=== PATIENT | male | born 1940 | race Caucasian/White ===

== ENCOUNTER 2024-01-09 13:57 | Emergency (ER) | payer MEDICARE, SELFPAY ==
[2024-01-09] VITALS (7 sets, daily range): BP systolic 165–211; BP diastolic 70–87; PULSE 60–74; BMI 22.0
[2024-01-09 14:37] LABS: % Basophils 0.5 % (0-2); % Eosinophils 4.1 % (0-6); % Immature Granulocytes 0.6 % (0-0.5); % Lymphocytes 9.7 % (20.5-51.1); % Monocytes 6.7 % (1.7-9.3); % Neutrophils 78.4 % (42.2-75.2); Absolute Eosinophils 0.3 10^3/uL (0-0.7); Absolute Immature Granulocytes 0.1 10^3/uL (0-0.05); Absolute Lymphocytes 0.8 10^3/uL (1.2-3.4); Absolute Monocytes 0.6 10^3/uL (0.1-0.6); Absolute Neutrophils 6.6 10^3/uL (1.4-6.5); Hematocrit 37.3 % (39.0-52.0); Hemoglobin 12.5 g/dL (13.0-18.0); Mean Corp Hgb Conc. 33.5 g/dL (33.0-37.0); Mean Corpuscular Hgb 28.8 pg (27.0-31.0); Mean Corpuscular Volume 85.9 fL (80.0-94.0); Mean Platelet Volume 11.4 fL (7.4-10.4); Nucleated Red Blood Cells % 0 % (-); Platelet Count 168 10^3/uL (130-400); Red Blood Cell Count 4.34 10^6/uL (4.70-6.10); Red Cell Dist. Width 17.2 % (11.5-14.5); White Blood Cell Count 8.4 10^3/uL (4.8-10.8)
[2024-01-09 14:58] LABS: ALT (SGPT) 36 U/L (0-50); AST (SGOT) 39 U/L (17-59); Albumin 4.2 g/dl (3.5-5.0); Alkaline Phosphatase 135 U/L (38-126); Blood Urea Nitrogen 19 mg/dl (9-20); Calcium 8.9 mg/dl (8.4-10.2); Carbon Dioxide 25 mmol/L (22-30); Chloride 104 mmol/L (98-107); Glucose 146 mg/dl (70-99); Potassium 4.1 mmol/L (3.5-5.1); Sodium 136 mmol/L (135-145); Total Bilirubin 1.9 mg/dl (0.2-1.3); Total Protein 6.9 g/dl (6.3-8.2); eGFR > 60.00
[2024-01-09 17:06] LABS: Urine Albumin 1+ (Neg - Trace); Urine Bilirubin 1+ (Negative); Urine Character Clear (Clear); Urine Color Yellow; Urine Glucose Trace (Negative); Urine Ketone Negative (Negative); Urine Leukocyte Trace (Negative); Urine Nitrite Negative (Negative); Urine Occult Blood 4+ (Negative); Urine Specific Gravity 1.025 (<1.030); Urine Urobilinogen 3+ (Neg - 1+)
[2024-01-09 17:18] LABS: Urine Calcium Oxalate Crystals Present; Urine Red Blood Cell 90-100 /HPF (0-2); Urine White Cell 0-2 /HPF (0-5)
--- NOTE | 2024-01-09 17:18 | ED.GENMED ---
History of Present Illness
<Chikis Gould, MOLDING MANAGER - Last Filed: 01/10/24 08:04>
General
Chief Complaint: Urinary Symptoms
Source: patient
Exam Limitations: none
Time Seen by Provider: 01/09/24 16:35
Nursing documentation reviewed up to this point in time: agreed with
Travel History
Have you had any contact with someone who has COVID-19?: No
Do you have any symptoms of coronavirus? Fever > 100 degrees, chills, cough, shortness of breath, sore throat, loss of taste or smell, muscle aches, or headache?: No
History of Present Illness
History of Present Illness:
83-year-old male present with at 11 a.m. after his dermatology appointment where he had his 4th 'light treatment' to left arm, felt lightheaded, faint, mild headache noted BP to be high and had one episode of hematuria. Had hematuria 10 yrs ago,
cystoscopy by Dr. Burk neg.
PMHX of history of A-fib, HTN, pacemaker, NIDDM, psoriasis, admitted 12/13 to 12/15 for TAVR, was started on Farxiga and Entresco. Started developing rash during that admission, worsened after discharge and admitted again 12/18-12/22 for significant
left arm swelling and generalized rash: DC dx: Drug reaction rash vs. rash due to Farxiga vs Psoriatic Flare. also Hypertension.
He stopped the Farxiga and Entresco. Placed on steroids with significant improvement.
Followed up with dermatology Had skin biopsy, told him it was a severe reaction to Farxiga and Entresco.
Followed up with [facility] [facility] today and is getting 'light therapy' to left arm.
For HTN: Cardiology Caro Arias stopped Metoprolol and started Coreg for better control, Lasix increased from prn to daily. He reported consistently high BP 5 days ago and started back on Metoprolol 12.5 mg daily, BP still high and Metoprolol was
increased to 25 mg daily
Past History
<Chikis Gould, MOLDING MANAGER - Last Filed: 01/10/24 08:04>
Past History
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
eye glaucoma)
ED Past Surgical History: Appendectomy, Cardiac (Pacemaker implantation August 2022) and Other (Nasal surgery, cataract surgery)
Patient has exhibited threatening behavior?: No
PSI?: No
Social History
Tobacco: Non-smoker
Alcohol: Daily (Beer 2 )
Drug: None
Personal:
Living: with family
Employment: Retired
Family History
Family History: CAD
Review of Systems
<Chikis Gould, MOLDING MANAGER - Last Filed: 01/10/24 08:04>
Review of Systems
Allergies reviewed?: Yes
All Other Systems: ROS reviewed and negative except as documented in HPI and ROS
Constitutional: Denies fever or chills
Respiratory: Denies trouble breathing
Cardiac: Denies chest pain
ABD/GI: Denies abdominal pain, nausea, vomiting or diarrhea
: Reports dark urine; Denies dysuria, frequency, flank pain, difficulty voiding or urgency
Musculoskeletal: Reports no symptoms
Skin: Reports other (generalized skin rash)
Neurological: Reports other (Lightheadedness); Denies dizzy, headache, weakness or numbness
Phy Exam
<Chikis Gould MOLDING MANAGER - Last Filed: 01/10/24 08:04>
Physical Exam
Physical Exam:
GENERAL: No acute distress. A&Ox3.
CONSTITUTIONAL: Afebrile.
EYES: PERRL, conjunctivae normal
Neck: Supple
ENMT: moist mucus membranes, Pharynx nl
RESPIRATORY: Regular respirations, nonlabored, lungs clear.
CARDIOVASCULAR: Regular rate and rhythm, no murmurs, no rubs.
GI: Soft, nontender, normal BS
MUSCULOSKELETAL: Moves with ease. Well perfused.
SKIN: Warm, dry, generalized red and scaly rash, mild swelling left arm(patient states much improved).
PSYCH: Normal mood and affect. Well kept, interactive and appropriate
NEUROLOGIC: Awake, alert and oriented. No focal neurological deficits
Course
<Chikis Gould, MOLDING MANAGER - Last Filed: 01/10/24 08:04>
Orders/Labs/Results
Orders:
Orders
01/09/24 14:09
Electrocardiogram (*1) Urgent
Reason for Study: Fatigue / Weakness
01/09/24 14:10
EKG- Treatment ONCE
01/09/24 14:24
Complete Blood Count/With Diff Urgent
Comprehensive Metabolic Panel Urgent
01/09/24 16:54
Urinalysis Reflex To Culture Urgent
Date Specimen was Collected: 01/09/24
Time Specimen was Collected: 14:10
Urine Microscopic Reflex Cult Urgent
Urine Culture Urgent
JORGE Source: U
Specimen Description:
Date Specimen was Collected: 01/09/24
Time Specimen was Collected: 14:10
01/09/24 17:18
INR [Prothrombin Time] Urgent
Abnormal Lab Results
01/09/24 01/09/24 01/09/24
14:24 16:54 17:18
RBC 4.34 L 10^6/uL
(4.70-6.10)
Hgb 12.5 L g/dL
(13.0-18.0)
Hct 37.3 L %
(39.0-52.0)
RDW 17.2 H %
(11.5-14.5)
MPV 11.4 H fL
(7.4-10.4)
Abs Immat Gran (auto) 0.1 H 10^3/uL
(0-0.05)
Absolute Neuts (auto) 6.6 H 10^3/uL
(1.4-6.5)
Absolute Lymphs (auto) 0.8 L 10^3/uL
(1.2-3.4)
Immature Gran % 0.6 H %
(0-0.5)
Neutrophils % 78.4 H %
(42.2-75.2)
Lymphocytes % 9.7 L %
(20.5-51.1)
PT 30.7 H Sec
(11.4-14.6)
Creatinine 0.6 L mg/dL
(0.7-1.3)
Glucose 146 H mg/dl
(70-99)
Total Bilirubin 1.9 H mg/dl
(0.2-1.3)
Alkaline Phosphatase 135 H U/L
(38-126)
Ur Occult Blood Reflex 4+ A
(Negative)
Urine Bilirubin 1+ A
(Negative)
Urine Urobilinogen 3+ A
(Neg - 1+)
Leukocyte Esterase Rfl Trace A
(Negative)
Urine RBC 90-100 A /HPF
(0-2)
Urine Bacteria (Reflex) Moderate A
(Negative)
Urine Glucose Trace A
(Negative)
Urine Albumin (Reflex) 1+ A
(Neg - Trace)
01/09/24 14:24
01/09/24 14:24
Vital Signs
Initial and Last Documented VS:
Initial Vital Signs
Temp Pulse Resp BP Pulse Ox
97.7 F 65 17 165/76 99
01/09/24 14:07 01/09/24 14:07 01/09/24 14:07 01/09/24 14:07 01/09/24 14:07
Last Documented Vital Signs
Temp Pulse Resp BP Pulse Ox
97.7 F 71 19 177/87 96
01/09/24 14:07 01/09/24 18:14 01/09/24 18:11 01/09/24 19:52 01/09/24 19:53
<Kristen Gray MD - Last Filed: 01/09/24 19:35>
Orders/Labs/Results
Orders:
Orders
01/09/24 14:09
Electrocardiogram (*1) Urgent
Reason for Study: Fatigue / Weakness
01/09/24 14:10
EKG- Treatment ONCE
01/09/24 14:24
Complete Blood Count/With Diff Urgent
Comprehensive Metabolic Panel Urgent
01/09/24 16:54
Urinalysis Reflex To Culture Urgent
Date Specimen was Collected: 01/09/24
Time Specimen was Collected: 14:10
Urine Microscopic Reflex Cult Urgent
Urine Culture Urgent
JORGE Source: U
Specimen Description:
Date Specimen was Collected: 01/09/24
Time Specimen was Collected: 14:10
01/09/24 17:18
INR [Prothrombin Time] Urgent
Abnormal Lab Results
01/09/24 01/09/24 01/09/24
14: 16:54 17:18
RBC 4.34 L 10^6/uL
(4.70-6.10)
Hgb 12.5 L g/dL
(13.0-18.0)
Hct 37.3 L %
(39.0-52.0)
RDW 17.2 H %
(11.5-14.5)
MPV 11.4 H fL
(7.4-10.4)
Abs Immat Gran (auto) 0.1 H 10^3/uL
(0-0.05)
Absolute Neuts (auto) 6.6 H 10^3/uL
(1.4-6.5)
Absolute Lymphs (auto) 0.8 L 10^3/uL
(1.2-3.4)
Immature Gran % 0.6 H %
(0-0.5)
Neutrophils % 78.4 H %
(42.2-75.2)
Lymphocytes % 9.7 L %
(20.5-51.1)
PT 30.7 H Sec
(11.4-14.6)
Creatinine 0.6 L mg/dL
(0.7-1.3)
Glucose 146 H mg/dl
(70-99)
Total Bilirubin 1.9 H mg/dl
(0.2-1.3)
Alkaline Phosphatase 135 H U/L
(38-126)
Ur Occult Blood Reflex 4+ A
(Negative)
Urine Bilirubin 1+ A
(Negative)
Urine Urobilinogen 3+ A
(Neg - 1+)
Leukocyte Esterase Rfl Trace A
(Negative)
Urine RBC 90-100 A /HPF
(0-2)
Urine Bacteria (Reflex) Moderate A
(Negative)
Urine Glucose Trace A
(Negative)
Urine Albumin (Reflex) 1+ A
(Neg - Trace)
01/09/24 14:24
01/09/24 14:24
Vital Signs
Initial and Last Documented VS:
Initial Vital Signs
Temp Pulse Resp BP Pulse Ox
97.7 F 65 17 165/76 99
01/09/24 14:07 01/09/24 14:07 01/09/24 14:07 01/09/24 14:07 01/09/24 14:07
Last Documented Vital Signs
Temp Pulse Resp BP Pulse Ox
97.7 F 71 19 177/87 96
01/09/24 14:07 01/09/24 18:14 01/09/24 18:11 01/09/24 19:52 01/09/24 19:53
<Chikis Gould NP - Last Filed: 01/10/24 08:04>
MDM/Problems Addressed
Differential Diagnosis Includes:
cellulitis
Hypertensive urgency
ICH
MDM/Problems Addressed:
83-year-old male present with at 11 a.m. after his dermatology appointment felt lightheaded, faint, mild headache noted BP to be high and had one episode of hematuria. Had hematuria 10 yrs ago, cystoscopy by Dr. Burk neg.
PMHX of history of A-fib, HTN, pacemaker, NIDDM, psoriasis, admitted 12/13 to 12/15 for TAVR, was started on Farxiga and Entresco. Started developing rash during that admission, worsened after discharge and admitted again 12/18-12/22 for significant
left arm swelling and generalized rash: DC dx: Drug reaction rash vs. rash due to Farxiga vs Psoriatic Flare. also Hypertension.
He stopped the Farxiga and Entresco. Placed on steroids with significant improvement.
Followed up with dermatology who told him it was a severe reaction to Farxiga and Entresco. Took biopsy and told
Followed up with [facility] today and is getting 'light therapy' to left arm.
For HTN: Cardiology Caro GalvanHugo stopped Metoprolol and started Coreg for better control, Lasix increased from prn to daily. He reported consistently high BP 5 days ago and started back on Metoprolol 12.5 mg daily, BP still high and Metoprolol was
increased to 25 mg daily. Pt states his Coreg was DC'd.
01/09/2024 1841 PM
CBC: No clinically significant abnormality
INR 2.95
CMP with no clinically significant abnormality. Chronic mildly elevated total bilirubin
UA: 4+ occult blood, 90-100 RBCs per hpf, no WBCs
When I started to go over his unremarkable laboratory work and his improving blood pressure, no sign of infection in the urine, he started explaining that his left arm is more red than it has been and wondering why we cannot do anything about that
He saw his wire twister today and I informed him he should call his wire twister tomorrow and inform of his concerns for his arm, after 4 light therapy sessions, the last 1 being today it may be difficult that the arm looks a little more reddened.
Orthostatics negative
Abdomen benign
Urine appears clear rowena
INR therapeutic, no focal neuro deficits, no suspicion of ICH
Patient has an echo scheduled for Sunday 5 days, and has an appointment Sunday with cardiology MOLDING MANAGER
Recommended f/u with his urologist
Recommended call [facility] tomorrow about the increased redness, of left upper arm.
Upon discharge patient is disappointed that we can 'do nothing, I thought the hospital was supposed to fix things.'
Case discussed with Dr. Gray who evaluated patient.
Dr. Gray agrees, pt frustrated with multiple issues, none acute needing immediate intervention.
<Chikis Gould NP - Last Filed: 01/10/24 08:04>
*Critical Care Note
Total Time (30-74mins, 75-104mins- exclusive of procedures): Not Applicable
ED Attending Note
<Chikis Gould NP - Last Filed: 01/10/24 08:04>
-
Portions of this chart may have been created with voice recognition software.� Occasional wrong word or��sound alike� substitutions may have occurred due to the inherent limitations of voice recognition software.
<Kristen Gray MD - Last Filed: 01/09/24 19:35>
ED Attending Note
Patient seen and examined by attending physician: Yes
I performed the substantive portion of visit, reviewed & personally made and approve the management plan that is documented in note by myself or JIM.: Yes
ED Attending Note:
Patient is hemodynamically stable and there is no sign of significant bleeding. Patient has no sign of endorgan damage. Patient will be encouraged to follow-up with urology as well as dermatology for his ongoing itchy skin rash. I looked at
patient's rash and there is no petechiae and no sign of cellulitis.
Discharge Plan
Departure
Patient Disposition: Home (Routine Discharge)
Date of Disposition: 01/09/24
Time of Disposition: 18:55
Patient with high blood pressure during this ER visit?: Yes
Condition: Fair
Discharge Problem:
psoriatic skin rash, Hypertension, Lightheadedness, Hematuria
Instructions: Blood in the Urine (Hematuria), Adult (DC), BLOOD PRESSURE
Prescriptions:
No Action
finasteride 5 MG tablet
5 mg PO DAILY@2099
loratadine [Claritin RediTabs] 10 mg Tablet,Disintegrating
10 mg PO DAILY PRN (Reason: ALLERGIES)
paroxetine HCl 10 mg Tablet
10 mg PO DAILY
melatonin 10 mg Tablet
10 mg PO HS PRN (Reason: SLEEP)
metformin 500 mg tablet
500 mg PO DAILY@2099
polyethylene glycol 3350 17 gram powder in packet
17 g PO DAILY PRN (Reason: constipation)
acetaminophen 500 mg Tablet
500 mg PO Q6H PRN (Reason: discomfort)
warfarin 2.5 mg Tablet
2.5 mg PO SUMOTUWETHFR@2099
diphenhydramine HCl [Benadryl] 25 mg Capsule
25 mg PO DAILYPRN PRN (Reason: allergies)
cholecalciferol (vitamin D3) 50 mcg (2,000 unit) Capsule
150 mcg PO DAILY
furosemide 20 mg Tablet
20 mg PO DAILY Qty: 0 0RF
warfarin 2.5 mg Tablet
5 mg PO SA@2099
furosemide 20 mg Tablet
40 mg PO DAILY PRN (Reason: weight gain of 3lbs overnight)
metoprolol succinate 25 mg Tablet Extended Release 24 Hr
25 mg PO DAILY@2099
atorvastatin 20 mg tablet
20 mg PO DAILY@2099
triamcinolone acetonide 0.1 % cream
1 applic TOPICAL BID
Referrals:
Phill Selby MD [Family Provider] -
Activity Restrictions/Additional Instructions:
As we discussed, your last blood pressure was 167/70. Continue your current meds and keep your appointment on Sunday for your echocardiogram and on Sunday for your visit with the cardiac nurse practitioner.
Call your wire twister tomorrow and ask if it is unusual that your arm seems more reddened and irritated today after your light therapy
Call your urologist to make an appointment for the hematuria. Your urine shows no sign of infection.
Interventions
Interventions:
*Risk Screen - Suicide Last Done: 01/09/24 17:15
*General Assessment Last Done: 01/09/24 17:15
*Neglect/Abuse Screening Last Done: 01/09/24 17:16
ED- Fall Risk Assessment Last Done: 01/09/24 19:55
*ED COVID-19 Vaccine History Last Done: 01/09/24 14:08
*Nursing Disposition Last Done: 01/09/24 19:55
ED-Male Genitourinary Assessment Last Done: 01/09/24 17:00
Discharge Date and Time
Discharge Date/Time: 01/09/24 20:03
[2024-01-09 17:20] LABS: Urine Bacteria Moderate (Negative)
[2024-01-09 17:46] LABS: INR 2.95; PT 30.7 Sec (11.4-14.6)
== END 2024-01-09 20:03 | disposition home or self-care (01) ==
LOC: EMR 13:57
PROVIDERS: Registered Nurse; EMERGENCY PHYSICIAN Emergency Medicine; FAMILY PHYSICIAN Family Medicine
DX: L40.9 Psoriasis, unspecified (principal); R42 Dizziness and giddiness; R31.9 Hematuria, unspecified; R51.9 Headache, unspecified; R22.32 Localized swelling, mass and lump, left upper limb; I10 Essential (primary) hypertension; I48.91 Unspecified atrial fibrillation; E11.9 Type 2 diabetes mellitus without complications; E78.00 Pure hypercholesterolemia, unspecified; G93.32 Myalgic encephalomyelitis/chronic fatigue syndrome; K57.92 Diverticulitis of intestine, part unspecified, without perforation or abscess without bleeding; N40.0 Benign prostatic hyperplasia without lower urinary tract symptoms; H40.9 Unspecified glaucoma; Z95.0 Presence of cardiac pacemaker; Z88.0 Allergy status to penicillin; Z88.2 Allergy status to sulfonamides; Z88.8 Allergy status to other drugs, medicaments and biological substances; Z79.01 Long term (current) use of anticoagulants
CPT/HCPCS: 99283; 80053; 81003; 81015; 85025; 85610; 87086; 93005

== ENCOUNTER → 2024-01-14 10:03 | Outpatient (REF) | payer MEDICARE, SELFPAY | LOC: DHCBC MAIN 10:03 | PROVIDERS: ATTENDING PHYSICIAN Internal Medicine Cardiovascular Disease; FAMILY PHYSICIAN Family Medicine | DX: I35.0 Nonrheumatic aortic (valve) stenosis (principal) | CPT/HCPCS: 93306 ==

== ENCOUNTER → 2024-01-25 11:22 | Outpatient (REF) | payer MEDICARE, SELFPAY ==
[2024-01-25 12:50] LABS: ALT (SGPT) 40 U/L (0-50); AST (SGOT) 43 U/L (17-59); Albumin 4.1 g/dl (3.5-5.0); Alkaline Phosphatase 111 U/L (38-126); Blood Urea Nitrogen 16 mg/dl (9-20); Calcium 9.3 mg/dl (8.4-10.2); Carbon Dioxide 29 mmol/L (22-30); Chloride 100 mmol/L (98-107); Glucose 197 mg/dl (70-99); Potassium 4.4 mmol/L (3.5-5.1); Sodium 135 mmol/L (135-145); Total Bilirubin 2.4 mg/dl (0.2-1.3); Total Protein 6.7 g/dl (6.3-8.2); eGFR > 60.00
[2024-01-25 13:03] LABS: INR 4.77
[2024-01-25 13:58] LABS: Glycohemoglobin (HgbA1c) 6.8 % (4.0-5.6)
== END ==
LOC: REG 11:22
PROVIDERS: ATTENDING PHYSICIAN Nurse Practitioner; FAMILY PHYSICIAN Family Medicine
DX: I10 Essential (primary) hypertension (principal); D68.318 Other hemorrhagic disorder due to intrinsic circulating anticoagulants, antibodies, or inhibitors; I48.21 Permanent atrial fibrillation; E11.9 Type 2 diabetes mellitus without complications
CPT/HCPCS: 36415; 80053; 83036; 85610

== ENCOUNTER → 2024-01-31 10:09 | Outpatient (REF) | payer MEDICARE, SELFPAY ==
[2024-01-31 18:43] LABS: Urine Albumin Negative (Neg - Trace); Urine Bilirubin Negative (Negative); Urine Character Clear (Clear); Urine Color Yellow; Urine Glucose 1+ (Negative); Urine Ketone Negative (Negative); Urine Leukocyte Negative (Negative); Urine Nitrite Negative (Negative); Urine Occult Blood Negative (Negative); Urine Urobilinogen Negative (Neg - 1+)
== END ==
LOC: CLAB 10:09
PROVIDERS: ATTENDING PHYSICIAN Specialist
DX: R31.0 Gross hematuria (principal)
CPT/HCPCS: 81003

== ENCOUNTER → 2024-02-01 10:46 | Outpatient (REF) | payer MEDICARE, SELFPAY ==
[2024-02-01 11:56] LABS: Urine Albumin Negative (Neg - Trace); Urine Bilirubin Negative (Negative); Urine Character Clear (Clear); Urine Color Yellow; Urine Glucose Trace (Negative); Urine Ketone Negative (Negative); Urine Leukocyte Negative (Negative); Urine Nitrite Negative (Negative); Urine Occult Blood Negative (Negative); Urine Specific Gravity 1.015 (<1.030); Urine Urobilinogen Negative (Neg - 1+)
[2024-02-01 12:06] LABS: INR 2.97; PT 30.8 Sec (11.4-14.6)
[2024-02-01 12:31] LABS: Blood Urea Nitrogen 18 mg/dl (9-20); Carbon Dioxide 28 mmol/L (22-30); Chloride 101 mmol/L (98-107); Glucose 166 mg/dl (70-99); Sodium 136 mmol/L (135-145); eGFR > 60.00
== END ==
LOC: REG 10:46
PROVIDERS: ATTENDING PHYSICIAN Family Medicine
DX: D68.318 Other hemorrhagic disorder due to intrinsic circulating anticoagulants, antibodies, or inhibitors (principal); I10 Essential (primary) hypertension; R31.0 Gross hematuria
CPT/HCPCS: 36415; 80048; 81003; 85610

== ENCOUNTER → 2024-02-08 09:27 | Outpatient (REF) | payer MEDICARE, SELFPAY ==
[2024-02-08 10:58] LABS: INR 2.66; PT 28.2 Sec (11.4-14.6)
== END ==
LOC: REG 09:27
PROVIDERS: ATTENDING PHYSICIAN Physician Assistant
DX: D68.318 Other hemorrhagic disorder due to intrinsic circulating anticoagulants, antibodies, or inhibitors (principal)
CPT/HCPCS: 36415; 85610

== ENCOUNTER → 2024-02-12 11:29 | Outpatient (REF) | payer MEDICARE, SELFPAY ==
[2024-02-12 12:48] LABS: INR 2.35; PT 25.6 Sec (11.4-14.6)
== END ==
LOC: REG 11:29
PROVIDERS: ATTENDING PHYSICIAN Physician Assistant
DX: D68.318 Other hemorrhagic disorder due to intrinsic circulating anticoagulants, antibodies, or inhibitors (principal)
CPT/HCPCS: 36415; 85610

== ENCOUNTER → 2024-02-14 13:14 | Outpatient (REF) | payer MEDICARE, SELFPAY ==
[2024-02-14 14:53] LABS: Blood Urea Nitrogen 23 mg/dl (9-20); Calcium 9.5 mg/dl (8.4-10.2); Carbon Dioxide 29 mmol/L (22-30); Chloride 99 mmol/L (98-107); Glucose 86 mg/dl (70-99); Potassium 4.3 mmol/L (3.5-5.1); Sodium 138 mmol/L (135-145); eGFR > 60.00
== END ==
LOC: REG 13:14
PROVIDERS: ATTENDING PHYSICIAN Nurse Practitioner; FAMILY PHYSICIAN Family Medicine
DX: I10 Essential (primary) hypertension (principal)
CPT/HCPCS: 36415; 80048

== ENCOUNTER → 2024-02-21 11:09 | Outpatient (REF) | payer MEDICARE, SELFPAY | LOC: RAD 11:09 | PROVIDERS: ATTENDING PHYSICIAN Specialist; FAMILY PHYSICIAN Family Medicine | DX: R31.0 Gross hematuria (principal) | CPT/HCPCS: 76770 ==

== ENCOUNTER 2024-02-22 16:09 | Outpatient (RCR) | payer MEDICARE, SELFPAY ==
[2024-02-15 14:26] LABS: Glucose - Point of Care 114 mg/dl (70-99)
[2024-02-15 15:18] LABS: Glucose - Point of Care 92 mg/dl (70-99)
[2024-02-18 16:01] LABS: Glucose - Point of Care 120 mg/dl (70-99)
[2024-02-18 16:27] LABS: Glucose - Point of Care 112 mg/dl (70-99)
[2024-02-20 16:34] LABS: Glucose - Point of Care 134 mg/dl (70-99)
[2024-02-20 16:51] LABS: Glucose - Point of Care 119 mg/dl (70-99)
[2024-02-22 15:35] LABS: Glucose - Point of Care 122 mg/dl (70-99)
[2024-02-22 16:17] LABS: Glucose - Point of Care 135 mg/dl (70-99)
[2024-02-26 09:49] LABS: HDL Cholesterol 53 mg/dl; LDL Cholesterol, Calculated 53 mg/dl; Total Cholesterol 119 mg/dl (50-199); Triglyceride 67 mg/dl (10-149); Very Low Density Lipoprotein 13 mg/dl (0-30)
== END 2024-02-22 23:59 | disposition home or self-care (01) ==
LOC: CRHB 16:09
PROVIDERS: ATTENDING PHYSICIAN Internal Medicine Cardiovascular Disease; FAMILY PHYSICIAN Family Medicine
DX: Z95.4 Presence of other heart-valve replacement (principal)
CPT/HCPCS: 36415; 80061; 82962; G0422; G0423

== ENCOUNTER → 2024-02-26 07:25 | Outpatient (REF) | payer MEDICARE, SELFPAY ==
[2024-02-26 09:02] LABS: INR 2.99
== END ==
LOC: REG 07:25
PROVIDERS: ATTENDING PHYSICIAN Family Medicine
DX: D68.318 Other hemorrhagic disorder due to intrinsic circulating anticoagulants, antibodies, or inhibitors (principal); I48.21 Permanent atrial fibrillation
CPT/HCPCS: 36415; 85610

== ENCOUNTER 2024-03-10 15:06 | Outpatient (RCR) | payer MEDICARE, SELFPAY ==
[2024-02-25 15:46] LABS: Glucose - Point of Care 128 mg/dl (70-99)
[2024-02-25 16:16] LABS: Glucose - Point of Care 123 mg/dl (70-99)
[2024-02-27 15:27] LABS: Glucose - Point of Care 117 mg/dl (70-99)
[2024-02-27 16:10] LABS: Glucose - Point of Care 108 mg/dl (70-99)
[2024-02-29 15:31] LABS: Glucose - Point of Care 107 mg/dl (70-99)
== END 2024-03-10 23:59 | disposition home or self-care (01) ==
LOC: CRHB 15:06
PROVIDERS: ATTENDING PHYSICIAN Internal Medicine Cardiovascular Disease; FAMILY PHYSICIAN Family Medicine
DX: I35.0 Nonrheumatic aortic (valve) stenosis (principal); Z95.4 Presence of other heart-valve replacement
CPT/HCPCS: 82962; G0422; G0423

== ENCOUNTER → 2024-03-14 13:00 | Outpatient (REF) | payer MEDICARE, SELFPAY ==
[2024-03-14 13:49] LABS: INR 3.24
== END ==
LOC: REG 13:00
PROVIDERS: ATTENDING PHYSICIAN Family Medicine
DX: I48.21 Permanent atrial fibrillation (principal)
CPT/HCPCS: 36415; 85610

== ENCOUNTER 2024-03-18 03:27 | Inpatient (IN) | payer MEDICARE, SELFPAY ==
[2024-03-17 19:23] VITALS: BP 122/50
[2024-03-17 19:50] LABS: % Basophils 0.4 % (0-2); % Eosinophils 1.1 % (0-6); % Immature Granulocytes 0.3 % (0-0.5); % Lymphocytes 3.8 % (20.5-51.1); % Neutrophils 86.4 % (42.2-75.2); Absolute Basophils 0.1 10^3/uL (0-0.2); Absolute Eosinophils 0.1 10^3/uL (0-0.7); Absolute Lymphocytes 0.5 10^3/uL (1.2-3.4); Absolute Neutrophils 10.4 10^3/uL (1.4-6.5); Hematocrit 35.3 % (39.0-52.0); Hemoglobin 11.8 g/dL (13.0-18.0); Mean Corp Hgb Conc. 33.4 g/dL (33.0-37.0); Mean Corpuscular Hgb 28.6 pg (27.0-31.0); Mean Corpuscular Volume 85.5 fL (80.0-94.0); Mean Platelet Volume 10.9 fL (7.4-10.4); Nucleated Red Blood Cells % 0 % (-); Platelet Count 163 10^3/uL (130-400); Red Blood Cell Count 4.13 10^6/uL (4.70-6.10); Red Cell Dist. Width 15.7 % (11.5-14.5); White Blood Cell Count 12.1 10^3/uL (4.8-10.8)
[2024-03-17 20:02] LABS: Lactic Acid 1.7 mmol/L (0.7-2.0)
[2024-03-17 20:05] LABS: ALT (SGPT) 36 U/L (0-50); AST (SGOT) 36 U/L (17-59); Alkaline Phosphatase 140 U/L (38-126); Blood Urea Nitrogen 38 mg/dl (9-20); Calcium 9.3 mg/dl (8.4-10.2); Carbon Dioxide 24 mmol/L (22-30); Chloride 98 mmol/L (98-107); Glucose 196 mg/dl (70-99); Potassium 4.8 mmol/L (3.5-5.1); Sodium 132 mmol/L (135-145); Total Bilirubin 1.2 mg/dl (0.2-1.3); Total Protein 6.7 g/dl (6.3-8.2); eGFR > 60.00
[2024-03-17 20:08] LABS: COVID-19 Antigen Negative (Negative)
[2024-03-17 22:35] VITALS: BP 126/49
[2024-03-17 23:00] VITALS: BP 129/45
[2024-03-17 23:14] VITALS: BMI 22.9
[2024-03-18] VITALS (15 sets, daily range): BP systolic 124–162; BP diastolic 29–76; PULSE 64–87; O2SAT 96; BMI 30.2
--- NOTE | 2024-03-18 | EDRN ---
Provided patient with urinal to obtain specimen, patient with no complaints and at bedside
--- NOTE | 2024-03-18 00:12 | ED.GENMED ---
History of Present Illness
General
Chief Complaint: Fever
Source: patient
Exam Limitations: none
Time Seen by Provider: 03/17/24 23:20
Travel History
Have you had any contact with someone who has COVID-19?: No
Do you have any symptoms of coronavirus? Fever > 100 degrees, chills, cough, shortness of breath, sore throat, loss of taste or smell, muscle aches, or headache?: Yes
Symptoms:: fever
History of Present Illness
History of Present Illness:
This is a 83 year old male that comes in with c/o fever. States that he has Psoriasis all over his body for being taken off of steroids to fast. States that he goes to the [facility] and he is getting light and UV treatments. States that he has a
light treatment today. States that night around 7pm he started with a fever of 102 and he was told by the [facility] to come to the ER. States that he had chills, nausea, vomiting, headache, dizziness. Denies any chest pain, SOB, abd pain,
diarrhea, urinary burning.
Past History
Past History
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
syndrome, Diverticulitis, Glaucoma, ) and Other (BPH, deviated septum, left eye glaucoma)
ED Past Surgical History: Appendectomy, Cardiac (Pacemaker implantation August 2022, Valve replacement) and Other (Nasal surgery, cataract surgery)
Patient has exhibited threatening behavior?: No
PSI?: No
Social History
Tobacco: Non-smoker
Alcohol: Occasional (Beer 2 sometimes daily)
Drug: None
Personal:
Living: with family
Employment: Retired
Family History
Family History: CAD
Review of Systems
Review of Systems
All Other Systems: ROS reviewed and negative except as documented in HPI and ROS
Constitutional: Reports fever and chills
EENT: Reports no symptoms
Respiratory: Reports no symptoms; Denies cough or trouble breathing
Cardiac: Reports no symptoms; Denies chest pain
ABD/GI: Reports nausea and vomiting; Denies abdominal pain or diarrhea
: Reports no symptoms; Denies dysuria, frequency or urgency
Musculoskeletal: Reports no symptoms
Skin: Reports no symptoms
Neurological: Reports dizzy and headache
Psychiatric: Reports no symptoms
Phy Exam
General Physical Exam
General Presentation: no apparent distress
General age: appears stated age
General Skin: warm and dry
General Habitus: elderly
General Mental: alert
General Hydration: appears well hydrated
ENT Exam
ENT Exam: TM's normal, pharynx normal and neck supple
Eye Exam
Eye Exam: EOMI
Cardiovascular Exam
Cardiovascular Exam: regular rate/rhythm, no edema and normal peripheral pulses
Pulmonary Exam
Pulmonary Exam: lungs clear, no respiratory distress, no rales, chest non tender, no crackles, no rhonchi, no wheezing and no cough
Gastrointestinal Exam
Gastrointestinal Exam: normal bowel sounds, non tender, soft, no organomegaly, no pulsatile mass and non distended
Musculoskeletal Exam
Musculoskeletal Exam: full ROM and no edema
Skin Exam
Skin Exam: warm/dry, no petechia and other (red like rash noted all over patient body with skin peeling)
Psychiatric Exam
Psychiatric Exam: normal mood/affect
Course
Orders/Labs/Results
Orders:
Orders
03/17/24 19:44
COVID-19 Antigen Urgent
Source: Nasal Swab
Complete Blood Count/With Diff Urgent
Comprehensive Metabolic Panel Urgent
Lactic Acid Urgent
Blood Culture Urgent
JORGE Source: Blood/Venous
Specimen Description:
Influenza A+B Rapid Molecular Urgent
JORGE Source: Nasal Swab
Specimen Description:
03/18/24 00:11
Urinalysis Reflex To Culture Urgent
Date Specimen was Collected: 03/18/24
Time Specimen was Collected: 00:02
Urine Microscopic Reflex Cult Urgent
Urine Culture Urgent
JORGE Source: U
Specimen Description:
Date Specimen was Collected: 03/18/24
Time Specimen was Collected: 00:02
CR Chest - 2 Views Urgent
Comment:
Reason For Exam: fever
03/18/24 01:11
0.9% Sodium Chloride 1000 ml [Nss] 1,000 ml IV BOLUS
03/18/24 01:28
0.9% Sodium Chloride 500 ml [Nss] 500 ml IV BOLUS
Abnormal Lab Results
03/17/24 03/18/24
19:44 00:11
WBC 12.1 H 10^3/uL
(4.8-10.8)
RBC 4.13 L 10^6/uL
(4.70-6.10)
Hgb 11.8 L g/dL
(13.0-18.0)
Hct 35.3 L %
(39.0-52.0)
RDW 15.7 H %
(11.5-14.5)
MPV 10.9 H fL
(7.4-10.4)
Absolute Neuts (auto) 10.4 H 10^3/uL
(1.4-6.5)
Absolute Lymphs (auto) 0.5 L 10^3/uL
(1.2-3.4)
Absolute Monos (auto) 1.0 H 10^3/uL
(0.1-0.6)
Neutrophils % 86.4 H %
(42.2-75.2)
Lymphocytes % 3.8 L %
(20.5-51.1)
Sodium 132 L mmol/L
(135-145)
BUN 38 H mg/dl
(9-20)
Glucose 196 H mg/dl
(70-99)
Alkaline Phosphatase 140 H U/L
(38-126)
Urine Ketones Trace A
(Negative)
Ur Occult Blood Reflex 3+ A
(Negative)
Leukocyte Esterase Rfl 1+ A
(Negative)
Urine RBC 16-20 A /HPF
(0-2)
Urine WBC (Reflex) >100 A /HPF
(0-5)
Urine Bacteria (Reflex) Many A
(Negative)
03/17/24 19:44
03/17/24 19:44
Leukocytosis, H/H slightly low. Sodium slightly low. Dehydration. Glucose nonfasting. Alk phos elevated. Lactic acid normal at 1.7, COVID and Influenza negative. Urine positive for infection.
Vital Signs
Initial and Last Documented VS:
Initial Vital Signs
Temp Pulse Resp BP Pulse Ox
100.3 F 79 18 122/50 96
03/17/24 19:23 03/17/24 19:23 03/17/24 19:23 03/17/24 19:23 03/17/24 19:23
Last Documented Vital Signs
Temp Pulse Resp BP Pulse Ox
99.8 F 60 25 141/51 98
03/18/24 01:40 03/18/24 00:30 03/18/24 00:30 03/18/24 01:00 03/18/24 01:30
MDM/Problems Addressed
Differential Diagnosis Includes:
Viral syndrome. PNA, UTI
MDM/Problems Addressed:
This is a 83 year old male that comes in with c/o fever. States that he had chills tonight, nausea, vomiting, headache and dizziness. States that he is being treated with light and UV therapy by the [facility]. States that he had a light
treatment today and tonight he started with the fever. Patient was told to come to the ER.
Will get lab, COVID, Influenza, Chest x-ray and urine.
Back into see patient. Explained that his Blood works that he has an elevated WBC and he is dehydrated. Patient is negative for COVID and influenza. However, he has a urinary tract infection. Will admit for IV antibiotics. Hospitalist notified.
Chronic conditions affecting care:
NA
Acute Exacerbation and/or Progression of Chronic Illness:
NA
*Radiology
Radiology exam reviewed: preliminary read by ED provider (Chest- Negative for active disease)
*Pulse Oximetry
Patient hypoxic: no
*EKG
Interpreted by ED Provider?: NA
Rate: EKG- N/A
*Rail Setter Interpretation
Rate: normal
Heart Rate: 66
Rhythm: ventricular paced
*Critical Care Note
Total Time (30-74mins, 75-104mins- exclusive of procedures): Not Applicable
ED Attending Note
-
Portions of this chart may have been created with voice recognition software.� Occasional wrong word or��sound alike� substitutions may have occurred due to the inherent limitations of voice recognition software.
Discharge Plan
Departure
Patient Disposition: Admit
Date of Disposition: 03/18/24
Time of Disposition: 02:27
Admit to: Med/Surg
Presentation/result/management discussed w/ accepting MD/DO: Hospitalist
Patient with high blood pressure during this ER visit?: Yes
Condition: Good
Covid-19: Negative COVID-19
Discharge Problem:
Fever and chills, Acute UTI (urinary tract infection)
Prescriptions:
No Action
finasteride 5 MG tablet
5 mg PO DAILY@2099
loratadine [Claritin RediTabs] 10 mg Tablet,Disintegrating
10 mg PO DAILY PRN (Reason: ALLERGIES)
paroxetine HCl 10 mg Tablet
10 mg PO DAILY
melatonin 10 mg Tablet
10 mg PO HS PRN (Reason: SLEEP)
metformin 500 mg tablet
500 mg PO DAILY@2099
polyethylene glycol 3350 17 gram powder in packet
17 g PO DAILY PRN (Reason: constipation)
acetaminophen 500 mg Tablet
500 mg PO Q6H PRN (Reason: discomfort)
warfarin 2.5 mg Tablet
2.5 mg PO SUMOTUWETHFR@2099
diphenhydramine HCl [Benadryl] 25 mg Capsule
25 mg PO DAILYPRN PRN (Reason: allergies)
cholecalciferol (vitamin D3) 50 mcg (2,000 unit) Capsule
150 mcg PO DAILY
furosemide 20 mg Tablet
20 mg PO DAILY Qty: 0 0RF
warfarin 2.5 mg Tablet
5 mg PO SA@2099
furosemide 20 mg Tablet
40 mg PO DAILY PRN (Reason: weight gain of 3lbs overnight)
metoprolol succinate 25 mg Tablet Extended Release 24 Hr
25 mg PO DAILY@2099
atorvastatin 20 mg tablet
20 mg PO DAILY@2099
triamcinolone acetonide 0.1 % cream
1 applic TOPICAL BID
Referrals:
Phill Selby MD [Family Provider] -
Interventions
Interventions:
*Risk Screen - Suicide Last Done: 03/17/24 19:23
*General Assessment Last Done: 03/17/24 19:23
*Neglect/Abuse Screening Last Done: 03/17/24 19:23
ED- Fall Risk Assessment Last Done: 03/17/24 23:14
*ED COVID-19 Vaccine History Last Done: 03/17/24 19:23
ED- Neurological Assessment Last Done: 03/17/24 23:14
ED-Skin Assessment Last Done: 03/17/24 23:14
Discharge Date and Time
Print Language: URDU
[2024-03-18 00:22] LABS: Urine Albumin Trace (Neg - Trace); Urine Bilirubin Negative (Negative); Urine Character Clear (Clear); Urine Color Yellow; Urine Glucose Negative (Negative); Urine Ketone Trace (Negative); Urine Leukocyte 1+ (Negative); Urine Nitrite Negative (Negative); Urine Occult Blood 3+ (Negative); Urine Urobilinogen Negative (Neg - 1+)
[2024-03-18] MEDS: NSS 500 IV (01:29)
[2024-03-18 01:33] LABS: Urine Amorphous Seen; Urine Bacteria Many (Negative); Urine Squamous Cell >30 /LPF (Few); Urine White Cell >100 /HPF (0-5)
[2024-03-18 01:34] LABS: Urine Red Blood Cell 16-20 /HPF (0-2)
--- NOTE | 2024-03-18 01:39 | EDRN ---
Updated patient on labs and plan for hydration and started IV fluids, at bedside and call anderson in reach, no complaints at this time, VSS
--- NOTE | 2024-03-18 03:00 | EDRN ---
Dr. Pack at bedside working on admission orders
[2024-03-18 03:06] LABS: INR 1.78; PT 20.5 Sec (11.4-14.6)
--- NOTE | 2024-03-18 03:13 | HPS.HSE ---
Family Physician
-
Family Physician: Phill Selby
Chief Complaint
-
Fever / Chills
History of Present Illness
Patient is an 83y M with PMH significant for A-Fib, recent TAVR and issues with suspected drug rash / eruption who presents to ED complaining of fevers and chills this evening. Patient was admitted for TAVR in November of this year. He was
started on Farxiga and Entresto at that time and subsequently developed severe, full-body rash. He was readmitted to the hospital, Farxiga and Entresto were discontinued, and he was treated with a short course of prednisone (7 days). Patient
states that his rash returned - much more severe this time - after he completed the prednisone course.
he was evaluated by Dermatology and has since been managed with topical therapies including triamcinolone and UV light therapy.
Patient notes that he woke this AM and had a temp at home of 102. He was seen for a light treatment at his Dermatology office. This evening he developed shaking chills and could not get warm.
He spoke with Derm who recommended he be evaluated in the ED.
Patient denies any cough, chest pain, abdominal pain, diarrhea.
He states that he had nausea and emesis x 1 this afternoon - none since.
He reports difficulty urination and some burning with urination.
No other specific / focal complaints.
He states that his rash is improving - albeit slowly.
Medical History
Past Medical History
Past Medical History: Reports Other
Additional Past Medical History:
Severe Aortic Stenosis
Severe Tricuspid Regurgitation / Pulmonary Hypertension
Permanent Atrial Fibrillation
Hypertension
Diabetes Mellitus, Type II
ASCVD / Carotid Artery Stenosis
BPH
Severe Psoriasis
Past Surgical History: Reports Other
Additional Past Surgical History:
TAVR (11/2023)
PPM Placement
Appendectomy
Nasal Surgery
Social History
Tobacco: Non-smoker
Alcohol: Occasional
Family History
Family History: Not pertinent
Allergies / Home Medications
Allergies reflects when Allergies were last updated in [employer].
Home Medications with original date entered in [employer]
Allergy/Medication List:
Allergies
Allergy/AdvReac Type Severity Reaction Status Date / Time
dapagliflozin [From Farxiga] Allergy Rash Verified 03/17/24 19:26
penicillin G [Penicillin G] Allergy Rash/facial Verified 03/17/24 19:26
burning
progesterone Allergy Swelling Verified 03/17/24 19:26
sacubitril [From Entresto] Allergy itching,desirae Verified 03/17/24 19:26
h
Sulfa (Sulfonamide Allergy Rash Verified 03/17/24 19:26
Antibiotics)
valsartan [From Entresto] Allergy itching,desirae Verified 03/17/24 19:26
h
Home Medications
finasteride 5 mg tablet 5 mg PO DAILY@2099 Urinary issue 06/12/15
paroxetine HCl 10 mg tablet 10 mg PO DAILY Mental Health/Anxiety 10/31/23
metformin 500 mg tablet 500 mg PO DAILY@2099 Diabetes 12/03/23
warfarin 2.5 mg tablet 2.5 mg PO DAILY@2099 Blood Clot Prevention/Tx 12/18/23
furosemide 20 mg tablet 20 mg PO DAILY edema #0 tabs 12/22/23
atorvastatin 20 mg tablet 20 mg PO DAILY@209901/09/24
metoprolol succinate 25 mg tablet,extended release 24 hr 25 mg PO DAILY@209901/09/24
triamcinolone acetonide 0.1 % topical cream 1 applic topical BID apply to B/L arms/chest/back 01/09/24
lisinopril 20 mg tablet 20 mg PO DAILY 03/18/24
spironolactone 25 mg tablet 25 mg PO DAILY 03/18/24
Review of Systems
-
History Source: Patient
A 12 point ROS was completed and negative except as noted: Yes
Constitutional: Reports Fever, Fatigue and Chills
EENT: Denies Sore Throat
Respiratory: Denies Cough or Trouble Breathing
Cardiac: Denies Chest Pain or Palpitations
Abdomen/GI: Reports Nausea and Vomiting; Denies Abdominal Pain, Diarrhea, Constipated, Bloody Stools or Black Stools
: Reports Dysuria and Difficulty Voiding; Denies Frequency, Flank Pain or Incontinence
Musculoskeletal: Denies Joint Pain or Edema
Skin: Reports Itching and Rash
Neurological: Denies Dizzy or Headache
Psych: Reports Depression; Denies Anxiety
Physical Exam
Vital Signs
Vital Signs
Temp Pulse Resp BP Pulse Ox
99.8 F 60 25 146/54 99
03/18/24 01:40 03/18/24 00:30 03/18/24 00:30 03/18/24 02:00 03/18/24 02:30
Physical Exam
General: Other (83y M in no acute distress.)
HEENT: Moist mucous membranes and PERRLA
Respiratory: Clear; No Wheezes, Rales or Rhonchi
Cardiac: S1/S2, Regular Rhythm and Murmur (II/ PERLA)
GI: Soft, Non Tender, Non Distended and Normal Bowel Sounds
Musculoskeletal: No Clubbing, No Cyanosis and No Edema
Skin: Other (Diffuse, exfoliative rash over trunk / extremities. Few scattered ecchymoses. No blisters, bullae, ulcerations, etc.)
Neuro: AO x 3
Laboratory Results
-
03/17/24 19:44
03/17/24 19:44
Laboratory Results
PT 20.5 Sec (11.4-14.6) H 03/18/24 02:52
INR 1.78 03/18/24 02:52
Lactic Acid 1.7 mmol/L (0.7-2.0) 03/17/24 19:44
Total Bilirubin 1.2 mg/dl (0.2-1.3) 03/17/24 19:44
AST 36 U/L (17-59) 03/17/24 19:44
ALT 36 U/L (0-50) 03/17/24 19:44
Alkaline Phosphatase 140 U/L (38-126) H 03/17/24 19:44
Impression/Plan
-
A/P: Patient is an 83y M with PMH significant for severe psoriasis, A-Fib and recent TAVR who presents to ED complaining of fevers / chills.
Fever / Chills
Suspected UTI
- Admit for further evaluation and treatment.
- COVID, influenza, CXR, etc unremarkable.
- UA potentially c/w infection - but also contaminated with > 30 squamous cells.
- Will repeat UA.
- Cover with ceftriaxone fro now pending repeat UA / culture data.
- Follow fever curve.
- Follow for any new / focal symptoms, etc.
Severe Psoriasis
Drug Eruption
- Improving per patient.
- Diffuse exfoliative rash over much of his body.
- Continue topical steroid BID.
- Monitor for any acute changes.
- Follow-up with Dermatology after discharge.
Chronic HFmrEF
Severe Aortic Stenosis s/p TAVR
Moderate - Severe MR
Severe TR / Pulmonary HTN
- Echo done 01/24/24 with EF 40-45% and valvular disease as noted.
- No evidence of volume overload on today's exam.
- Continue current med regimen including current diuretic dosing.
- Follow I/Os, daily weights, etc.
- Patient did not tolerate Farxiga / Entresto as his severe rash developed after these started.
Permanent Atrial Fibrillation
- Stable. Currently in paced rhythm.
- Continue current med regimen including Coumadin for stroke risk reduction.
- Follow daily INR and adjust dosing if needed.
Benign Hypertension
- Stable. Continue outpatient med regimen.
DM-II
- Stable. Hold metformin acutely.
- Follow glucose and cover with SSI as needed.
- Update A1C.
Depression
- Stable. Continue paroxetine.
BPH
- Stable. Continue finasteride.
- Bladder scan protocol.
DVT Prophylaxis: On Coumadin
Code Status: Full
[2024-03-18] MEDS: ROCEPHIN 1000 MG IV (03:19)
[2024-03-18] MEDS: STERILE WATER FOR INJECTION 10 ML IV (03:20)
--- NOTE | 2024-03-18 04:17 | EDRN ---
Lights turned down for comfort, call bel in reach.
[2024-03-18] MEDS: LASIX 20 MG PO (08:51)
[2024-03-18] MEDS: ALDACTONE 25 MG PO (08:51)
[2024-03-18] MEDS: ZESTRIL 20 MG PO (08:52)
[2024-03-18] MEDS: ARISTOCORT/TRIAMCINOLONE 0.1% CREAM 1 APPLIC TOPICAL ×2 (08:53→21:26)
[2024-03-18] MEDS: PAXIL 10 MG PO ×2 (08:53→10:34)
[2024-03-18 09:13] LABS: Glucose - Point of Care 157 mg/dl (70-99)
[2024-03-18] MEDS: NOVOLOG FLEXPEN-LOW RESISTANCE 1 UNITS SC (10:26)
--- NOTE | 2024-03-18 10:32 | W.PN.HOSP.TC ---
Today's Communication/Plan
-
adjust coumadin
await culture data
Assessment / Plan
Assessment / Plan
General: Other (83y M in no acute distress.)
HEENT: Moist mucous membranes and PERRLA
Respiratory: Clear; No Wheezes, Rales or Rhonchi
Cardiac: S1/S2, Regular Rhythm and Murmur (II/ PERLA)
GI: Soft, Non Tender, Non Distended and Normal Bowel Sounds
Musculoskeletal: No Clubbing, No Cyanosis and No Edema
Skin: Other (Diffuse, exfoliative rash over trunk / extremities. Few scattered ecchymoses. No blisters, bullae, ulcerations, etc.)
Neuro: AO x 3
A/P: Patient is an 83y M with PMH significant for severe psoriasis, A-Fib and recent TAVR who presents to ED complaining of fevers / chills.
Fever / Chills unclear source
- COVID, influenza, CXR, etc unremarkable.
- UA potentially c/w infection - but also contaminated with > 30 squamous cells.
- Will repeat UA.
- Cover with ceftriaxone fro now pending repeat UA / culture data.
- Follow fever curve.
- Follow for any new / focal symptoms, etc. If spikes fever, may need ID input.
Severe Psoriasis
Drug Eruption
- Diffuse exfoliative rash over much of his body.
- Continue topical steroid BID.
- Monitor for any acute changes. Monitor rash. Per pt, not much change in regards for erythema post UV treatment.
- Follow-up with Dermatology after discharge.
Chronic HFmrEF
Severe Aortic Stenosis s/p TAVR
Moderate - Severe MR
Severe TR / Pulmonary HTN
- Echo done 01/24/24 with EF 40-45% and valvular disease as noted.
- No evidence of volume overload on today's exam.
- Continue current med regimen including current diuretic dosing.
- Follow I/Os, daily weights, etc.
- Patient did not tolerate Farxiga / Entresto as his severe rash developed after these started.
Permanent Atrial Fibrillation
Sub-therapeutic INR
- Stable. Currently in paced rhythm.
- Continue current med regimen including Coumadin for stroke risk reduction.
- Follow daily INR and adjust dosing if needed. Increase coumadin to 3mg
Benign Hypertension
- Stable. Continue outpatient med regimen.
DM-II
- Stable. Hold metformin acutely.
- Follow glucose and cover with SSI as needed.
- Update A1C.
Depression
- Stable. Continue paroxetine.
BPH
- Stable. Continue finasteride.
- Bladder scan protocol.
DVT Prophylaxis: On Coumadin
Code Status: Full
Anticipated Discharge: > 48 hours
Subjective/Interval History
-
Date of Service: March 18, 2024
No overnight fevers
Denies cough
Patient is highly upset due to restricted diet
Denies any blister or purulent drainage from skin rash
States there are diffuse body rash does become erythematous post UV light treatment.
Objective Data
-
Labs:
Laboratory Results
03/18/24
02:52
PT 20.5 H
INR 1.78
Vital Signs:
Vital Signs
Temp Pulse Resp BP Pulse Ox
99.8 F 67 16 153/56 97
03/18/24 01:40 03/18/24 09:26 03/18/24 09:26 03/18/24 09:26 03/18/24 09:26
[2024-03-18 10:43] LABS: Urine Albumin Trace (Neg - Trace); Urine Bilirubin Negative (Negative); Urine Character Clear (Clear); Urine Color Yellow; Urine Glucose Negative (Negative); Urine Ketone Trace (Negative); Urine Leukocyte 1+ (Negative); Urine Nitrite Negative (Negative); Urine Occult Blood 2+ (Negative); Urine Urobilinogen Negative (Neg - 1+)
[2024-03-18 10:58] LABS: Urine Yeast Few (Negative)
[2024-03-18 10:59] LABS: Urine Red Blood Cell 0-2 /HPF (0-2); Urine White Cell 16-20 /HPF (0-5)
[2024-03-18 11:00] LABS: Urine Bacteria Few (Negative)
[2024-03-18 13:04] LABS: Glucose - Point of Care 217 mg/dl (70-99)
[2024-03-18] MEDS: NOVOLOG FLEXPEN-LOW RESISTANCE SC ×2 (13:16→21:00)
[2024-03-18] MEDS: CLARITIN 10 MG PO (21:25)
[2024-03-18] MEDS: TOPROL XL 25 MG PO (21:26)
[2024-03-18] MEDS: COUMADIN 3 MG PO (21:26)
[2024-03-18] MEDS: LIPITOR 20 MG PO (21:26)
[2024-03-18] MEDS: PROSCAR 5 MG PO (21:26)
[2024-03-18 21:31] LABS: Glucose - Point of Care 164 mg/dl (70-99)
--- NOTE | 2024-03-19 02:00 | PTCARENOTE ---
Pt aaox3 able to make his needs known.Pt on fall precautions. Pt refused for sliding scale insulin & scd's UPSETTER SETTER UP compressor station chief engineer made aware of it.Pt oriented to room & call anderson in reach.Plan of care continued.
[2024-03-19] MEDS: STERILE WATER FOR INJECTION 10 ML IV ×3 (03:50→17:38)
[2024-03-19] MEDS: ROCEPHIN 1000 MG IV (03:51)
[2024-03-19 05:13] LABS: Hematocrit 34.8 % (39.0-52.0); Hemoglobin 11.8 g/dL (13.0-18.0); Mean Corp Hgb Conc. 33.9 g/dL (33.0-37.0); Mean Corpuscular Hgb 29.5 pg (27.0-31.0); Mean Platelet Volume 11.8 fL (7.4-10.4); Platelet Count 150 10^3/uL (130-400); Red Cell Dist. Width 15.6 % (11.5-14.5); White Blood Cell Count 12.6 10^3/uL (4.8-10.8)
[2024-03-19 05:29] LABS: INR 1.75; PT 20.3 Sec (11.4-14.6)
[2024-03-19 05:38] LABS: Blood Urea Nitrogen 26 mg/dl (9-20); Calcium 8.8 mg/dl (8.4-10.2); Carbon Dioxide 26 mmol/L (22-30); Chloride 99 mmol/L (98-107); Estimated Creatinine Clearance 71 ml/min; Glucose 139 mg/dl (70-99); Potassium 4.7 mmol/L (3.5-5.1); Sodium 131 mmol/L (135-145); eGFR > 60.00
[2024-03-19 06:00] VITALS: BMI 30.5
[2024-03-19 07:48] LABS: Glucose - Point of Care 133 mg/dl (70-99)
[2024-03-19 07:55] VITALS: BP 134/55
[2024-03-19] MEDS: NOVOLOG FLEXPEN-LOW RESISTANCE SC (08:43)
[2024-03-19] MEDS: PAXIL 20 MG PO (08:44)
[2024-03-19] MEDS: ZESTRIL 20 MG PO (08:44)
[2024-03-19] MEDS: LASIX 20 MG PO (08:44)
[2024-03-19] MEDS: ALDACTONE 25 MG PO (08:44)
[2024-03-19] MEDS: ARISTOCORT/TRIAMCINOLONE 0.1% CREAM 1 APPLIC TOPICAL (08:46)
[2024-03-19 09:09] LABS: Glycohemoglobin (HgbA1c) 7.3 % (4.0-5.6)
--- NOTE | 2024-03-19 10:56 | W.PN.HOSP.TC ---
Today's Communication/Plan
-
Gentle fluids x 1 L only
Switch antibiotic to cefepime
Await susceptibility results
Assessment / Plan
Assessment / Plan
General: Other (83y M in no acute distress.)
HEENT: Moist mucous membranes and PERRLA
Respiratory: Clear; No Wheezes, Rales or Rhonchi
Cardiac: S1/S2, Regular Rhythm and Murmur (II/ PERLA)
GI: Soft, Non Tender, Non Distended and Normal Bowel Sounds
Musculoskeletal: No Clubbing, No Cyanosis and No Edema
Skin: Other (Diffuse, exfoliative rash over trunk / extremities. Few scattered ecchymoses. No blisters, bullae, ulcerations, etc.)
Neuro: AO x 3
A/P: Patient is an 83y M with PMH significant for severe psoriasis, A-Fib and recent TAVR who presents to ED complaining of fevers / chills.
Sepsis secondary to Pseudomonas UTI-poa
- COVID, influenza, CXR, etc unremarkable. Blood cultures pulmonary negative
- urine culture preliminary Pseudomonas. Susceptibility results. DC ceftriaxone switched to cefepime
- Follow fever curve.. Gentle IV fluids.
Severe Psoriasis
Drug Eruption
- Diffuse exfoliative rash over much of his body.
- Continue topical steroid BID.
- Monitor for any acute changes. Monitor rash. Per pt, not much change in regards for erythema post UV treatment.
- Follow-up with Dermatology after discharge.
Chronic HFmrEF
Severe Aortic Stenosis s/p TAVR
Moderate - Severe MR
Severe TR / Pulmonary HTN
- Echo done 01/24/24 with EF 40-45% and valvular disease as noted.
- Continue current med regimen including current diuretic dosing.
- Follow I/Os, daily weights, etc.
- Patient did not tolerate Farxiga / Entresto as his severe rash developed after these started.
Permanent Atrial Fibrillation
Sub-therapeutic INR
- Stable. Currently in paced rhythm.
- Continue current med regimen including Coumadin for stroke risk reduction.
- Follow daily INR and adjust dosing if needed. Increase coumadin to 3mg 1 more dose. INR improving.
Benign Hypertension
- Stable. Continue outpatient med regimen.
DM-II
- Stable. Hold metformin acutely.
- Follow glucose and cover with SSI as needed.
- Update A1C at 7.3. POC 133 AM
Depression
- Stable. Continue paroxetine.
BPH
- Stable. Continue finasteride.
- Bladder scan protocol.
DVT Prophylaxis: On Coumadin
Code Status: Full
Anticipated Discharge: > 48 hours
Subjective/Interval History
-
Date of Service: March 19, 2024
States feeling weak
Objective Data
-
Labs:
Laboratory Results
03/19/24
04:29
WBC 12.6 H
Hgb 11.8 L
Hct 34.8 L
Plt Count 150
PT 20.3 H
INR 1.75
Sodium 131 L
Potassium 4.7
Chloride 99
Carbon Dioxide 26
BUN 26 H
Creatinine 0.7
Glucose 139 H
Calcium 8.8
Vital Signs:
Vital Signs
Temp Pulse Resp BP Pulse Ox
98.8 F 65 18 134/55 96
03/19/24 07:55 03/19/24 07:55 03/19/24 07:55 03/19/24 07:55 03/19/24 07:55
I&O
03/18/24 03/19/24 03/20/24
06:59 06:59 06:59
Intake Total 600 / 600
Output Total 325 / 325
Balance 275 / 275
Data Reviewed
-
Total Time Spent with Patient (in minutes): 55
[2024-03-19 11:17] LABS: Glucose - Point of Care 218 mg/dl (70-99)
[2024-03-19 11:55] VITALS: BP 113/50; BP 120/47; BP 132/43; PULSE 65; PULSE 68
--- NOTE | 2024-03-19 11:57 | CM ---
Addendum entered by Elisha Perez 03/19/24 15:27:
CM returned to patients room, patient asleep. CM spoke with patients , Annie. Annie reports patient resides with her and their son in a one story home with 5 steps to patio, 8 steps to house, then an additional 2 steps in house. Annie reports
patient does not use DME, denies SNF, will be starting outpatient PT at [place] 03/26/24. Annie confirms PCP Phill Selby, pharmacy [facility], confirms prescription coverage. CM will continue to follow for discharge planning needs.
Plan; home with outpatient PT.
Original Note:
Patient seen, requesting CM return when is here to conduct initial assessment, CM will return.
[2024-03-19] MEDS: FLUSH (NSS) 1 FLUSH IV (12:21)
[2024-03-19] MEDS: MAXIPIME 2000 MG IV ×2 (12:21→17:38)
[2024-03-19] MEDS: NSS 1000 IV (12:21)
[2024-03-19] MEDS: NOVOLOG FLEXPEN-LOW RESISTANCE 2 UNITS SC ×2 (12:30→17:38)
--- NOTE | 2024-03-19 13:03 | PN.CDI ---
CDI
- -
CDI:
Physician Documentation Request
Admit Date: 03/18/24 03:27
Dear Doctor Al,
Clinical Indicators:
Patient admitted with sepsis due to UTI.
03/17: NSS 500 ml bolus ordered.
Sodium levels:
03/17/24 03/19/24
19:44 04:29
Sodium 132 L 131 L
Based on the above, could you clarify in the progress notes, the appropriate diagnosis, if significant, that supports the above abnormalities and additional evaluation, monitoring and/or treatment rendered:
Hyponatremia
Abnormal lab values, clinically insignificant
Other
Use of terms such as suspected, likely, concern for, or probable (associated with a specific diagnosis that is being evaluated, monitored, or treated as if it exists) are acceptable and can be coded in the inpatient setting, when documented at the
time of discharge.
Thank you,
RUSTAM Gannon RN
CDI Specialist
available via tiger text
Please use your independent medical judgment in providing your response.
[2024-03-19 14:49] VITALS: BMI 30.2
[2024-03-19 15:55] VITALS: BP 134/60
--- NOTE | 2024-03-19 16:00 | CHAP ---
Msgr. Phill Escobar of [facility] in [place] anointed [place] and gave him Holy Communion.
[2024-03-19 16:34] LABS: Glucose - Point of Care 223 mg/dl (70-99)
[2024-03-19] MEDS: ARISTOCORT/TRIAMCINOLONE 0.1% CREAM TOPICAL (21:16)
[2024-03-19] MEDS: COUMADIN 3 MG PO (21:17)
[2024-03-19] MEDS: LIPITOR 20 MG PO (21:17)
[2024-03-19 21:19] LABS: Glucose - Point of Care 203 mg/dl (70-99)
[2024-03-19] MEDS: TOPROL XL 25 MG PO (21:25)
[2024-03-19] MEDS: PROSCAR 5 MG PO (21:25)
[2024-03-19] MEDS: CLARITIN 10 MG PO (21:26)
[2024-03-19 23:41] VITALS: BP 150/65
[2024-03-19] MEDS: TYLENOL 650 MG PO (23:50)
[2024-03-20] MEDS: MAXIPIME IV (02:00)
[2024-03-20] MEDS: STERILE WATER FOR INJECTION IV (02:00)
--- NOTE | 2024-03-20 04:31 | PTCARENOTE ---
Addendum entered by Urmila Moreno RN 03/20/24 06:22:
PRN nasal spray ordered for pt for c/o nasal dryness.
Original Note:
Pt aaox3 able to make his needs known, very anxious over night & worried about the medications that could cause his psoriasis flare or the switching of antibiotics. USED CAR SALES MANAGER sales professional was made aware of pt complaints & pt refused orthostatics overnight. Pt
was provided with emotional &psychological support as needed. Pt wanted his IV fluids to be stopped,400ML left over in bag,pt drinking enough fluids. Pt c/o SOB pulse oxy on RA 98%,pt anxious & wants oxygen on. Pt placed on 2 litres of oxygen at
this time with humidifier, as pt c/o of dryness & has nasal bleed at times he said he gets at home. Plan of care continued with pt.Call anderson & bed alarm in place.
[2024-03-20 05:16] LABS: INR 1.95; PT 22.4 Sec (11.4-14.6)
[2024-03-20 07:21] LABS: Glucose - Point of Care 140 mg/dl (70-99)
[2024-03-20 07:30] VITALS: BP 139/54; BP 139/56; BP 143/56; BP 146/56; PULSE 66; PULSE 67; PULSE 70
[2024-03-20] MEDS: NOVOLOG FLEXPEN-LOW RESISTANCE SC (08:04)
[2024-03-20] MEDS: PAXIL 20 MG PO (08:05)
[2024-03-20] MEDS: ALDACTONE 25 MG PO (08:05)
[2024-03-20] MEDS: ZESTRIL 20 MG PO (08:05)
[2024-03-20] MEDS: ARISTOCORT/TRIAMCINOLONE 0.1% CREAM 1 APPLIC TOPICAL ×2 (08:05→21:30)
[2024-03-20] MEDS: LASIX 20 MG PO (08:05)
[2024-03-20] MEDS: MIRALAX 17 GRAMS PO (08:08)
[2024-03-20] MEDS: MAXIPIME 2000 MG IV ×2 (11:29→21:31)
[2024-03-20] MEDS: STERILE WATER FOR INJECTION 10 ML IV ×2 (11:29→21:31)
[2024-03-20] MEDS: NOVOLOG FLEXPEN-LOW RESISTANCE 2 UNITS SC (11:31)
[2024-03-20 11:32] LABS: Glucose - Point of Care 210 mg/dl (70-99)
--- NOTE | 2024-03-20 11:41 | W.PN.HOSP.TC ---
Addendum entered and electronically signed by Gordon Melendez MD 03/20/24 13:08:
Mild hyponatremia
Original Note:
Today's Communication/Plan
-
Continue cefepime
Will ask ID for input
Continue with reduced dose of Coumadin
Trend INR daily
Assessment / Plan
Assessment / Plan
General: Other (83y M in no acute distress.)
HEENT: Moist mucous membranes and PERRLA
Respiratory: Clear; No Wheezes, Rales or Rhonchi
Cardiac: S1/S2, Regular Rhythm and Murmur (II/ PERLA)
GI: Soft, Non Tender, Non Distended and Normal Bowel Sounds
Musculoskeletal: No Clubbing, No Cyanosis and No Edema
Skin: Other (Diffuse, exfoliative rash over trunk / extremities. Few scattered ecchymoses. No blisters, bullae, ulcerations, etc.)
Neuro: AO x 3
A/P: Patient is an 83y M with PMH significant for severe psoriasis, A-Fib and recent TAVR who presents to ED complaining of fevers / chills.
Sepsis secondary to Pseudomonas UTI-poa
- COVID, influenza, CXR, etc unremarkable. Blood cultures pulmonary negative
- urine culture preliminary Pseudomonas. Susceptibility results. DC ceftriaxone switched to cefepime.
- Follow fever curve.. Tolerating p.o. diet. DC fluids. ID recs for antibiotics as states of worsening of rash to ciprofloxacin. May require IV antibiotics.
Severe Psoriasis
Drug Eruption
- Diffuse exfoliative rash over much of his body.
- Continue topical steroid BID.
- Monitor for any acute changes. Monitor rash. Per pt, not much change in regards for erythema post UV treatment.
- Follow-up with Dermatology after discharge.
Chronic HFmrEF
Severe Aortic Stenosis s/p TAVR
Moderate - Severe MR
Severe TR / Pulmonary HTN
- Echo done 01/24/24 with EF 40-45% and valvular disease as noted.
- Continue current med regimen including current diuretic dosing.
- Follow I/Os, daily weights, etc.
- Patient did not tolerate Farxiga / Entresto as his severe rash developed after these started.
Permanent Atrial Fibrillation
Sub-therapeutic INR
- Stable. Currently in paced rhythm.
- Continue current med regimen including Coumadin for stroke risk reduction. Continue home dose Coumadin
- Follow daily INR and adjust dosing if needed. INR at 1.95. Avoid supratherapeutic as states of history of epistaxis.
Benign Hypertension
- Stable. Continue outpatient med regimen.
DM-II
- Stable. Hold metformin acutely.
- Follow glucose and cover with SSI as needed.
- Update A1C at 7.3. POC 210 AM
Depression
- Stable. Continue paroxetine.
BPH
- Stable. Continue finasteride.
- Bladder scan protocol.
DVT Prophylaxis: On Coumadin
Code Status: Full
Anticipated Discharge: Within 24 hours
Subjective/Interval History
-
Date of Service: March 20, 2024
stated of worsening of body rash after taking cipro recently by pcp
Objective Data
-
Labs:
Laboratory Results
03/20/24
04:37
PT 22.4 H
INR 1.95
Vital Signs:
Vital Signs
Temp Pulse Resp BP Pulse Ox
97.5 F 66 18 146/56 96
03/20/24 07:30 03/20/24 07:30 03/20/24 07:30 03/20/24 07:30 03/20/24 08:00
I&O
03/19/24 03/20/24 03/21/24
06:59 06:59 06:59
Intake Total 600 / 600 1580 / 1580
Output Total 325 / 325 1125 / 1125
Balance 275 / 275 455 / 455
Data Reviewed
-
Total Time Spent with Patient (in minutes): 56
[2024-03-20 15:04] VITALS: BP 138/51
--- NOTE | 2024-03-20 15:46 | CM ---
ID indicated pt needs IV infusion in home mat dc.
Spoke with patient he agreed with [facility] and [facility] for infusion teaching and support.
Spoke with [facility] .
Faxed script,FS,insurance info,clinical notes.
Will need to fax line info when placed.
PLAN : Home with [facility] infusion with [facility]
--- NOTE | 2024-03-20 16:14 | CON.ID ---
Consultation
-
Date/Time Consultation Requested: March 20, 2024 1140
Date/Time Consultation Performed: March 20, 2024 1230
Requesting Provider: Dr. Gordon Melendez
Performing Provider: Dr. Gretchen Villalobos
Reason for Consultation: Pseudomonas UTI, severe Cipro allergy
Chief Complaint / Past History
Chief Complaint
Fever and chills
History of Present Illness
83-year-old male with history of atrial fibrillation, pacemaker placement, recent TAVR in November then developed severe full body rash thought to be from Farxiga and an Entresto which were discontinued. He was on prednisone which was tapered off
too quickly with return of the rash. Rash stable on UV light therapy. On March 17 he suddenly developed shaking chills and fever. He took his temperature which was 102. He called his splash line operator who recommended ED evaluation and therefore he
came in March 17. Temperature was 100.3. White count of 12.6. He was started on ceftriaxone for UTI. Urine culture came back as Pseudomonas and he is now on cefepime. Patient reports recent weak urinary stream. Had some urgency. No dysuria.
No flank pain. He is feeling better. He reports severe rash from Cipro in the past. He is concerned about the current cefepime antibiotic. However patient currently tolerating cephalosporins.
Past History
Additional Past Medical History:
Diabetes mellitus type 2
Aortic stenosis status post TAVR
Permanent atrial fibrillation
Pacemaker placement
Hypertension
BPH
Severe psoriasis
Pulmonary hypertension/tricuspid regurgitation
Appendectomy
Allergy History:
dapagliflozin [From Farxiga] Allergy (Verified 03/19/24 18:45)
Rash-suspected
penicillin G [Penicillin G] Allergy (Verified 03/17/24 19:26)
Rash/facial burning
progesterone Allergy (Verified 03/17/24 19:26)
Swelling
sacubitril [From Entresto] Allergy (Verified 03/17/24 19:26)
itching,rash
Sulfa (Sulfonamide Antibiotics) Allergy (Verified 03/17/24 19:26)
Rash
valsartan [From Entresto] Allergy (Verified 03/17/24 19:26)
itching,rash
ciprofloxacin [From Cipro] Adverse Reaction (Mild, Verified 03/20/24 11:40)
Rash
Medications Reviewed: Yes
Current Antibiotics:
cefepime
Social History
Tobacco: Non-Smoker
Alcohol: Occasional
Family History
Family History: Not Pertinent
Review of Systems
Review of Systems
General: Fever, Chills and Change in Appetite
HEENT: Negative Sinus Problems, Headache or Pharyngitis
Respiratory: Negative Dyspnea or Cough
Gasteroenterology: Other (no diarrhea); Negative Nausea or Vomiting
Genital / Urological: Negative Flank Pain
Neurological: Negative Headache or Dizziness
All systems: All other systems were reviewed and were negative
Vital Signs
Temp Pulse Resp BP Pulse Ox
97.4 F 61 18 138/51 97
03/20/24 15:04 03/20/24 15:04 03/20/24 15:04 03/20/24 15:04 03/20/24 15:04
Physical Exam
Physical Exam
Constitutional: No Acute Distress and Comfortable
Eyes: No Conjunctival Hemorrhage
Cardiovascular: Irregular Rate, S1/S2 and Other (L CW PPM site no erythema)
Pulmonary: Clear
Gastrointestinal: Soft, Non Tender and Non Distended
Genito-Urinary: Negative Can or CVA Tenderness
Extremities: Negative Edema
Skin: Rash (severe psoriasis especially thighs with large plaque, diffuse whole body erythroderma)
Neurological: AO x 3
Lab / Diagnostic Study Results
03/19/24 04:29
03/19/24 04:29
Abs Immat Gran (auto) 0.0 10^3/uL (0-0.05) 03/17/24 19:44
Absolute Neuts (auto) 10.4 10^3/uL (1.4-6.5) H 03/17/24 19:44
Absolute Lymphs (auto) 0.5 10^3/uL (1.2-3.4) L 03/17/24 19:44
Absolute Monos (auto) 1.0 10^3/uL (0.1-0.6) H 03/17/24 19:44
Absolute Basos (auto) 0.1 10^3/uL (0-0.2) 03/17/24 19:44
Immature Gran % 0.3 % (0-0.5) 03/17/24 19:44
Neutrophils % 86.4 % (42.2-75.2) H 03/17/24 19:44
Lymphocytes % 3.8 % (20.5-51.1) L 03/17/24 19:44
Monocytes % 8.0 % (1.7-9.3) 03/17/24 19:44
Eosinophils % 1.1 % (0-6) 03/17/24 19:44
Basophils % 0.4 % (0-2) 03/17/24 19:44
PT 22.4 Sec (11.4-14.6) H 03/20/24 04:37
INR 1.95 03/20/24 04:37
Lactic Acid 1.7 mmol/L (0.7-2.0) 03/17/24 19:44
Ur Squamous Epith Cells 6-10 /LPF (Few) 03/18/24 10:31
Microbiology Results
Micro:
03/18/24 10:31 Urine Culture - Final
Urine Pseudomonas aeruginosa
03/18/24 00:11 Urine Culture - Final
Urine Pseudomonas aeruginosa
03/17/24 19:44 Blood Culture - Preliminary
Blood/Venous No Growth in 48 hours- Final report to follow
03/17/24 19:44 Influenza Types A & B ([facility]) - Final
Nasal Swab Negative for Influenza A & B, NAAT
Negative results must be combined with clinical observations
and patient history.
Nucleic Acid Amplification test (NAAT)performed on the
[employer] platform.
Assessment / Plan
# Symptomatic Pseudomonas UTI.
- Unfortunately allergy to FQ and QTc >500.
No po abx option.
- Recommend cefepime 2g IV q12h through 03/31/24.
Infusion sheet submitted to pillowcase sewer.
- Place midline.
[2024-03-20 16:43] LABS: Glucose - Point of Care 159 mg/dl (70-99)
[2024-03-20] MEDS: NOVOLOG FLEXPEN-LOW RESISTANCE 1 UNITS SC (17:06)
--- NOTE | 2024-03-20 17:08 | VATNOTE ---
Informed by KAYLEEN Desai, pt. wants to make sure Medicare will pay for midline. Attempted to insert today however pt. refusing; even after speaking with Case Management.
[2024-03-20] MEDS: COUMADIN 2.5 MG PO (20:17)
[2024-03-20] MEDS: LIPITOR 20 MG PO (20:17)
[2024-03-20] MEDS: PROSCAR 5 MG PO (20:17)
[2024-03-20] MEDS: CLARITIN 10 MG PO (20:17)
[2024-03-20] MEDS: TOPROL XL 25 MG PO (20:17)
[2024-03-20 20:19] VITALS: BP 136/61; BP 139/55; BP 142/53; PULSE 62; PULSE 68; PULSE 71
[2024-03-20 21:20] LABS: Glucose - Point of Care 275 mg/dl (70-99)
[2024-03-20] MEDS: TYLENOL 650 MG PO (21:30)
[2024-03-20 23:30] VITALS: BP 153/63
[2024-03-21 04:37] VITALS: BMI 30.6
[2024-03-21 04:59] LABS: % Basophils 0.6 % (0-2); % Immature Granulocytes 0.4 % (0-0.5); % Lymphocytes 10.9 % (20.5-51.1); % Monocytes 7.9 % (1.7-9.3); % Neutrophils 69.2 % (42.2-75.2); Absolute Basophils 0.1 10^3/uL (0-0.2); Absolute Monocytes 0.7 10^3/uL (0.1-0.6); Absolute Neutrophils 6.3 10^3/uL (1.4-6.5); Hematocrit 36.3 % (39.0-52.0); Hemoglobin 11.9 g/dL (13.0-18.0); Mean Corp Hgb Conc. 32.8 g/dL (33.0-37.0); Mean Corpuscular Hgb 28.7 pg (27.0-31.0); Mean Corpuscular Volume 87.5 fL (80.0-94.0); Mean Platelet Volume 11.4 fL (7.4-10.4); Nucleated Red Blood Cells % 0 % (-); Platelet Count 151 10^3/uL (130-400); Red Blood Cell Count 4.15 10^6/uL (4.70-6.10); Red Cell Dist. Width 15.4 % (11.5-14.5); White Blood Cell Count 9.1 10^3/uL (4.8-10.8)
[2024-03-21 05:08] LABS: INR 2.27; PT 25.3 Sec (11.4-14.6)
[2024-03-21 05:29] LABS: Blood Urea Nitrogen 25 mg/dl (9-20); Calcium 8.9 mg/dl (8.4-10.2); Carbon Dioxide 27 mmol/L (22-30); Chloride 101 mmol/L (98-107); Estimated Creatinine Clearance 83 ml/min; Glucose 143 mg/dl (70-99); Potassium 4.6 mmol/L (3.5-5.1); Sodium 134 mmol/L (135-145); eGFR > 60.00
[2024-03-21 06:45] VITALS: BP 142/65
[2024-03-21] MEDS: ZESTRIL 20 MG PO (07:36)
[2024-03-21] MEDS: ARISTOCORT/TRIAMCINOLONE 0.1% CREAM 1 APPLIC TOPICAL (07:36)
[2024-03-21] MEDS: LASIX 20 MG PO (07:37)
[2024-03-21] MEDS: ALDACTONE 25 MG PO (07:37)
[2024-03-21] MEDS: NOVOLOG FLEXPEN-LOW RESISTANCE 1 UNITS SC (07:38)
[2024-03-21 07:39] LABS: Glucose - Point of Care 155 mg/dl (70-99)
[2024-03-21] MEDS: MAXIPIME 2000 MG IV ×2 (09:48→18:10)
[2024-03-21] MEDS: STERILE WATER FOR INJECTION 10 ML IV ×2 (09:48→18:10)
--- NOTE | 2024-03-21 11:09 | W.PN.ID1 ---
Date of Service
Date of Service: March 21, 2024
Today's Communication
DC home when IV abx set up.
Assessment / Plan
# Symptomatic Pseudomonas UTI.
- Unfortunately allergy to FQ and QTc >500.
No po abx option.
- Continue cefepime 2g IV q12h through 03/31/24.
Infusion sheet submitted to case reviewer.
- Place midline.
#Additional Past Medical History:
Diabetes mellitus type 2
Aortic stenosis status post TAVR
Permanent atrial fibrillation
Pacemaker placement
Hypertension
BPH
Severe psoriasis
Pulmonary hypertension/tricuspid regurgitation
Appendectomy
Chief Complaint
-: UTI
Subjective / Review of Systems
Tolerating cefepime.
Vital Signs / Physical Exam
Vital Signs
Vital Signs
Temp Pulse Resp BP Pulse Ox
97.5 F 63 18 142/65 99
03/21/24 06:45 03/21/24 06:45 03/21/24 06:45 03/21/24 06:45 03/21/24 07:40
Physical Exam
Constitutional: No Acute Distress
Gastrointestinal: Soft, Non Tender and Non Distended
Genito-Urinary: Negative CVA Tenderness
Objective Data
Lab Data
Lab Results
03/21/24 04:34
03/21/24 04:34
PT 25.3 Sec (11.4-14.6) H 03/21/24 04:34
INR 2.27 03/21/24 04:34
Estimated Creat Clear 83 ml/min 03/21/24 04:34
Lactic Acid 1.7 mmol/L (0.7-2.0) 03/17/24 19:44
Total Bilirubin 1.2 mg/dl (0.2-1.3) 03/17/24 19:44
AST 36 U/L (17-59) 03/17/24 19:44
ALT 36 U/L (0-50) 03/17/24 19:44
Alkaline Phosphatase 140 U/L (38-126) H 03/17/24 19:44
Most recent labs reviewed.
Micro Results:
03/17/24 19:44 Blood Culture - Preliminary
Blood/Venous No Growth in 72 hours- Final report to follow
03/18/24 10:31 Urine Culture - Final
Urine Pseudomonas aeruginosa
03/18/24 00:11 Urine Culture - Final
Urine Pseudomonas aeruginosa
03/17/24 19:44 Influenza Types A & B ([facility]) - Final
Nasal Swab Negative for Influenza A & B, NAAT
Negative results must be combined with clinical observations
and patient history.
Nucleic Acid Amplification test (NAAT)performed on the
[employer] platform.
[2024-03-21 11:16] VITALS: BP 137/70; BP 139/58; BP 139/65; PULSE 61; PULSE 68; PULSE 76
[2024-03-21 11:40] LABS: Glucose - Point of Care 252 mg/dl (70-99)
--- NOTE | 2024-03-21 12:04 | W.PN.HOSP.TC ---
Today's Communication/Plan
-
IV antibiotics
DC home
INR therapeutic
Assessment / Plan
Assessment / Plan
General: Other (83y M in no acute distress.)
HEENT: Moist mucous membranes and PERRLA
Respiratory: Clear; No Wheezes, Rales or Rhonchi
Cardiac: S1/S2, Regular Rhythm and Murmur (II/ PERLA)
GI: Soft, Non Tender, Non Distended and Normal Bowel Sounds
Musculoskeletal: No Clubbing, No Cyanosis and No Edema
Skin: Other (Diffuse, exfoliative rash over trunk / extremities. Few scattered ecchymoses. No blisters, bullae, ulcerations, etc.)
Neuro: AO x 3
A/P: Patient is an 83y M with PMH significant for severe psoriasis, A-Fib and recent TAVR who presents to ED complaining of fevers / chills.
Sepsis secondary to Pseudomonas UTI-poa
- COVID, influenza, CXR, etc unremarkable. Blood cultures pulmonary negative
- urine culture preliminary Pseudomonas. Susceptibility results. DC ceftriaxone switched to cefepime.
- Follow fever curve.. Tolerating p.o. diet. DC fluids. ID recs for antibiotics as states of worsening of rash to ciprofloxacin.
-Plan due to 14 days of IV cefepime. Evening dose at 6 PM and then DC home. IV infusion set up completed.
Severe Psoriasis
Drug Eruption
- Diffuse exfoliative rash over much of his body.
- Continue topical steroid BID.
- Monitor for any acute changes. Monitor rash. Per pt, not much change in regards for erythema post UV treatment.
- Follow-up with Dermatology after discharge.
Chronic HFmrEF
Severe Aortic Stenosis s/p TAVR
Moderate - Severe MR
Severe TR / Pulmonary HTN
- Echo done 01/24/24 with EF 40-45% and valvular disease as noted.
- Continue current med regimen including current diuretic dosing.
- Follow I/Os, daily weights, etc.
- Patient did not tolerate Farxiga / Entresto as his severe rash developed after these started.
Permanent Atrial Fibrillation status post pacemaker
Sub-therapeutic INR
- Stable. Currently in paced rhythm.
- Continue current med regimen including Coumadin for stroke risk reduction. Continue home dose Coumadin
- INR therapeutic. Avoid supratherapeutic as states of history of epistaxis.
Benign Hypertension
- Stable. Continue outpatient med regimen.
DM-II
- Stable. Hold metformin acutely.
- Follow glucose and cover with SSI as needed.
- Update A1C at 7.3. POC 155 AM
Depression
- Stable. Continue paroxetine.
BPH
- Stable. Continue finasteride.
- Bladder scan protocol.
DVT Prophylaxis: On Coumadin
Code Status: Full
More than 30 minutes spent in discharge including
Final examination of the patient
Summarizing hospital stay
Instructions for continuing care to all relevant caregivers
Preparation of discharge records, prescriptions, and referral forms
Total time spent (in minutes): 45
Anticipated Discharge: Today
Subjective/Interval History
-
Date of Service: March 21, 2024
Agreed to receive IV antibiotics
Afebrile
Tolerating diet
Objective Data
-
Labs:
Laboratory Results
03/21/24
04:34
WBC 9.1
Hgb 11.9 L
Hct 36.3 L
Plt Count 151
PT 25.3 H
INR 2.27
Sodium 134 L
Potassium 4.6
Chloride 101
Carbon Dioxide 27
BUN 25 H
Creatinine 0.6 L
Glucose 143 H
Calcium 8.9
Vital Signs:
Vital Signs
Temp Pulse Resp BP Pulse Ox
97.4 F 61 18 139/65 99
03/21/24 11:16 03/21/24 11:16 03/21/24 11:16 03/21/24 11:16 03/21/24 11:16
I&O
03/20/24 03/21/24 03/22/24
06:59 06:59 06:59
Intake Total 1580 / 1580 1680 / 1680
Output Total 1125 / 1125 1750 / 1750
Balance 455 / 455 -70 / -70
--- NOTE | 2024-03-21 12:08 | W.DCSUMMARY ---
Discharge Summary
Discharge Data
Date of Admission: 03/18/24
Date of Discharge: 03/21/24
-
Pending Results: No
Hospital Course
83-year-old male past medical history of severe cirrhosis, suspected drug reaction body rash, chronic heart failure, aortic stenosis status post TAVR, valvular disease, A-fib status post pacemaker, chronic coagulopathy with Coumadin, hypertension,
diabetes mellitus, depression, BPH who is presented with fevers and chills from dermatology office. Patient had abnormal UA on admission and was started on ceftriaxone. Patient urine culture positive for Pseudomonas and subsequently ceftriaxone
was discontinued to IV cefepime. Patient stated allergic reaction to ciprofloxacin. As a result infectious disease was consulted. Patient will be going home with midline and IV cefepime for 2 weeks. Patient had subtherapeutic INR and received 3
mg of Coumadin x 2 days and subsequently he was returned to his home dose of 2.5 mg. Patient was read by PT and OT and was discharged home.
Discharge Plan
-
Patient Disposition: Home with Home Care
Discharge Diagnosis/Procedures: Sepsis secondary to Pseudomonas urinary tract infection
Condition: Fair
Diet: As tolerated
Activity: With assistance and As tolerated
Driving Restrictions: Not until seen by your Dr
Activity Restrictions/Additional Instructions:
- Continue cefepime 2g IV q12h through 03/31/24. Follow-up with your primary vehicle sales professional.
Referrals:
Phill Selby MD [Family Provider] - in less than 1 week
Prescriptions:
New
cefepime 2 gram Recon Soln
2,000 mg IV Q12H Qty: 10 0RF
Continued
finasteride 5 MG tablet
5 mg PO HS
metformin 500 mg tablet
500 mg PO HS
warfarin 2.5 mg Tablet
2.5 mg PO HS
furosemide 20 mg Tablet
20 mg PO DAILY Qty: 0 0RF
metoprolol succinate 25 mg Tablet Extended Release 24 Hr
25 mg PO HS
atorvastatin 20 mg tablet
20 mg PO HS
triamcinolone acetonide 0.1 % cream
1 applic TOPICAL BID
lisinopril 20 mg Tablet
20 mg PO DAILY
spironolactone 25 mg Tablet
25 mg PO DAILY
fluocinonide 0.05 % ointment
1 applic TOPICAL DAILYPRN PRN (Reason: peeling skin on arms and chest)
paroxetine HCl [Paxil] 20 mg Tablet
20 mg PO DAILY
Discharge Orders:
Discharge Patient (As Directed); Ordered 03/21/24
Ordered By: Gordon Melendez
Discharge Date and Time
Print Language: NIGERIEN
[2024-03-21] MEDS: NOVOLOG FLEXPEN-LOW RESISTANCE 3 UNITS SC (12:13)
[2024-03-21] MEDS: PAXIL 20 MG PO (14:04)
--- NOTE | 2024-03-21 14:26 | CM ---
Addendum entered by Eleanor Rahman RN 03/21/24 16:29:
Spoke with Annie will drive him home. Mid line information faxed to [facility].
Confirmed with Janna Dailey and Baylee at [facility].Pt will receive IV infusion for day here. [facility] to deliver equipment and IV meds today . [facility] will have SOC tomorrow at their home.
Addendum entered by Eleanor Rahman RN 03/21/24 15:13:
LM with Annie .
Original Note:
Spoke with patient he agreed with [facility] and [facility] for infusion teaching and support.
IV script and clinical faxed to [facility].
Spoke with Sammie at [facility] .
Baylee at [facility] spoke with patient regarding cost of home infusion.
Pt agreed with cost.
Spoke with Janna at [facility].
Pt to received 2 doses of today meds at hospital and be dc to home today.
Spoke with Janna at [facility] . VN to start tomorrow for infusion education.
PLAN : Home with [facility] infusion with [facility] fax [phone]
[2024-03-21 15:26] VITALS: BP 130/58
[2024-03-21 16:42] LABS: Glucose - Point of Care 172 mg/dl (70-99)
[2024-03-21] MEDS: NOVOLOG FLEXPEN-LOW RESISTANCE SC (16:54)
== END 2024-03-21 18:55 | disposition home health service (06) | DRG 872 ==
LOC: 4 EAST ACU 03:27
PROVIDERS: Clinical Nurse Specialist Family Health; Emergency Medicine; ADMITTING PHYSICIAN Hospitalist; ATTENDING PHYSICIAN Hospitalist; EMERGENCY PHYSICIAN Emergency Medicine; FAMILY PHYSICIAN Family Medicine; OTHER PHYSICIAN Internal Medicine Infectious Disease
DX: A41.52 Sepsis due to Pseudomonas (principal); N39.0 Urinary tract infection, site not specified; I48.21 Permanent atrial fibrillation; I50.22 Chronic systolic (congestive) heart failure; E87.1 Hypo-osmolality and hyponatremia; Z11.52 Encounter for screening for COVID-19; L40.9 Psoriasis, unspecified; L27.0 Generalized skin eruption due to drugs and medicaments taken internally; I11.0 Hypertensive heart disease with heart failure; E11.9 Type 2 diabetes mellitus without complications; F32.A Depression, unspecified; N40.0 Benign prostatic hyperplasia without lower urinary tract symptoms; Z88.1 Allergy status to other antibiotic agents; I27.20 Pulmonary hypertension, unspecified; I35.0 Nonrheumatic aortic (valve) stenosis; Z95.2 Presence of prosthetic heart valve
CPT/HCPCS: 71046; 80048; 80053; 81003; 81015; 82962; 83036; 83605; 85025; 85027; 85610; 87040; 87086; 87088; 87186; 87502; 87811; 93005; 96360; 99285

== ENCOUNTER → 2024-04-04 14:44 | Outpatient (REF) | payer MEDICARE, SELFPAY ==
[2024-04-04 15:48] LABS: Blood Urea Nitrogen 32 mg/dl (9-20); Carbon Dioxide 29 mmol/L (22-30); Chloride 98 mmol/L (98-107); Glucose 185 mg/dl (70-99); Potassium 5.2 mmol/L (3.5-5.1); Sodium 135 mmol/L (135-145); eGFR > 60.00
== END ==
LOC: REG 14:44
PROVIDERS: ATTENDING PHYSICIAN Specialist; FAMILY PHYSICIAN Family Medicine
DX: R63.4 Abnormal weight loss (principal); I48.21 Permanent atrial fibrillation
CPT/HCPCS: 36415; 80048

== ENCOUNTER → 2024-04-24 07:03 | Outpatient (REF) | payer MEDICARE, SELFPAY ==
[2024-04-24 08:38] LABS: INR 2.55; PT 27.3 Sec (11.4-14.6)
[2024-04-24 09:05] LABS: Albumin 4.2 g/dl (3.5-5.0); Blood Urea Nitrogen 21 mg/dl (9-20); Calcium 9.4 mg/dl (8.4-10.2); Carbon Dioxide 34 mmol/L (22-30); Chloride 98 mmol/L (98-107); Glucose 179 mg/dl (70-99); Phosphorus 4.3 mg/dl (2.5-4.5); Potassium 4.6 mmol/L (3.5-5.1); Sodium 141 mmol/L (135-145); eGFR > 60.00
== END ==
LOC: REG 07:03
PROVIDERS: ATTENDING PHYSICIAN Dermatology; FAMILY PHYSICIAN Family Medicine; REFERRING PHYSICIAN Internal Medicine Cardiovascular Disease
DX: Z48.817 Encounter for surgical aftercare following surgery on the skin and subcutaneous tissue (principal); I10 Essential (primary) hypertension; Z95.2 Presence of prosthetic heart valve; R53.83 Other fatigue; R21 Rash and other nonspecific skin eruption; I34.0 Nonrheumatic mitral (valve) insufficiency; I07.1 Rheumatic tricuspid insufficiency; I50.20 Unspecified systolic (congestive) heart failure; I48.11 Longstanding persistent atrial fibrillation; D68.318 Other hemorrhagic disorder due to intrinsic circulating anticoagulants, antibodies, or inhibitors
CPT/HCPCS: 36415; 80069; 85610; 86480

== ENCOUNTER → 2024-05-06 14:36 | Outpatient (REF) | payer MEDICARE, SELFPAY | LOC: HWRCS 14:36 | PROVIDERS: ATTENDING PHYSICIAN Internal Medicine Cardiovascular Disease; FAMILY PHYSICIAN Family Medicine | DX: Z95.2 Presence of prosthetic heart valve (principal); I10 Essential (primary) hypertension; I34.0 Nonrheumatic mitral (valve) insufficiency; I07.1 Rheumatic tricuspid insufficiency; I50.20 Unspecified systolic (congestive) heart failure; I48.11 Longstanding persistent atrial fibrillation | CPT/HCPCS: 93306 ==

== ENCOUNTER → 2024-05-08 11:26 | Outpatient (REF) | payer MEDICARE, SELFPAY ==
[2024-05-08 13:49] LABS: INR 2.31; PT 25.6 Sec (11.4-14.6)
[2024-05-08 14:01] LABS: Albumin 3.7 g/dl (3.5-5.0); Blood Urea Nitrogen 19 mg/dl (9-20); Calcium 9.2 mg/dl (8.4-10.2); Carbon Dioxide 31 mmol/L (22-30); Chloride 99 mmol/L (98-107); Glucose 267 mg/dl (70-99); Phosphorus 3.3 mg/dl (2.5-4.5); Potassium 4.2 mmol/L (3.5-5.1); Sodium 139 mmol/L (135-145); eGFR > 60.00
== END ==
LOC: REG 11:26
PROVIDERS: ATTENDING PHYSICIAN Internal Medicine Cardiovascular Disease; FAMILY PHYSICIAN Family Medicine
DX: D68.318 Other hemorrhagic disorder due to intrinsic circulating anticoagulants, antibodies, or inhibitors (principal); Z95.2 Presence of prosthetic heart valve; R53.83 Other fatigue; I10 Essential (primary) hypertension; R21 Rash and other nonspecific skin eruption; I34.0 Nonrheumatic mitral (valve) insufficiency; I07.1 Rheumatic tricuspid insufficiency; I50.20 Unspecified systolic (congestive) heart failure; I48.11 Longstanding persistent atrial fibrillation
CPT/HCPCS: 36415; 80069; 85610

== ENCOUNTER → 2024-05-30 15:23 | Outpatient (REF) | payer MEDICARE, SELFPAY ==
[2024-05-30 16:03] LABS: % Basophils 0.5 % (0-2); % Eosinophils 3.5 % (0-6); % Immature Granulocytes 0.2 % (0-0.5); % Lymphocytes 14.3 % (20.5-51.1); % Monocytes 11.1 % (1.7-9.3); % Neutrophils 70.4 % (42.2-75.2); Absolute Eosinophils 0.3 10^3/uL (0-0.7); Absolute Lymphocytes 1.2 10^3/uL (1.2-3.4); Absolute Monocytes 0.9 10^3/uL (0.1-0.6); Absolute Neutrophils 5.7 10^3/uL (1.4-6.5); Hematocrit 36.7 % (39.0-52.0); Hemoglobin 12.3 g/dL (13.0-18.0); Mean Corp Hgb Conc. 33.5 g/dL (33.0-37.0); Mean Corpuscular Hgb 29.2 pg (27.0-31.0); Mean Corpuscular Volume 87.2 fL (80.0-94.0); Mean Platelet Volume 11.2 fL (7.4-10.4); Nucleated Red Blood Cells % 0 % (-); Platelet Count 206 10^3/uL (130-400); Red Blood Cell Count 4.21 10^6/uL (4.70-6.10); Red Cell Dist. Width 17.3 % (11.5-14.5); White Blood Cell Count 8.1 10^3/uL (4.8-10.8)
[2024-05-30 16:18] LABS: ALT (SGPT) 32 U/L (0-50); AST (SGOT) 41 U/L (17-59); Albumin 4.3 g/dl (3.5-5.0); Alkaline Phosphatase 129 U/L (38-126); Blood Urea Nitrogen 19 mg/dl (9-20); Carbon Dioxide 28 mmol/L (22-30); Chloride 101 mmol/L (98-107); Glucose 173 mg/dl (70-99); Sodium 139 mmol/L (135-145); Total Bilirubin 2.1 mg/dl (0.2-1.3); Total Protein 7.1 g/dl (6.3-8.2); eGFR > 60.00
[2024-05-30 16:48] LABS: TSH Reflex To Free T4 2.25 uIU/ml (0.47-4.68)
== END ==
LOC: RAD 15:23
PROVIDERS: ATTENDING PHYSICIAN Physician Assistant; FAMILY PHYSICIAN Obstetrics & Gynecology Reproductive Endocrinology
DX: R53.83 Other fatigue (principal); R06.02 Shortness of breath; R05.1 Acute cough
CPT/HCPCS: 71046; 80053; 84443; 85025

== ENCOUNTER → 2024-06-18 09:38 | Outpatient (REF) | payer MEDICARE, SELFPAY ==
[2024-06-18 11:12] LABS: INR 3.35; PT 34.5 Sec (11.4-14.6)
[2024-06-18 11:19] LABS: NT-proBNP 4000 pg/ml
== END ==
LOC: REG 09:38
PROVIDERS: ATTENDING PHYSICIAN Internal Medicine Cardiovascular Disease; FAMILY PHYSICIAN Family Medicine
DX: I10 Essential (primary) hypertension (principal); D68.318 Other hemorrhagic disorder due to intrinsic circulating anticoagulants, antibodies, or inhibitors
CPT/HCPCS: 36415; 83880; 85610

== ENCOUNTER → 2024-06-24 10:51 | Outpatient (REF) | payer MEDICARE, SELFPAY | LOC: HWRCS 10:51 | PROVIDERS: ATTENDING PHYSICIAN Internal Medicine Cardiovascular Disease; FAMILY PHYSICIAN Family Medicine | DX: I10 Essential (primary) hypertension (principal); Z95.2 Presence of prosthetic heart valve; I34.0 Nonrheumatic mitral (valve) insufficiency; I07.1 Rheumatic tricuspid insufficiency | CPT/HCPCS: 93308 ==

== ENCOUNTER → 2024-06-27 07:44 | Outpatient (REF) | payer MEDICARE, SELFPAY ==
[2024-06-27 10:14] LABS: INR 2.89; PT 30.2 Sec (11.4-14.6)
[2024-06-27 10:38] LABS: Albumin 4.2 g/dl (3.5-5.0); Blood Urea Nitrogen 17 mg/dl (9-20); Calcium 9.5 mg/dl (8.4-10.2); Carbon Dioxide 31 mmol/L (22-30); Chloride 101 mmol/L (98-107); Glucose 125 mg/dl (70-99); Phosphorus 4.1 mg/dl (2.5-4.5); Potassium 3.8 mmol/L (3.5-5.1); Sodium 142 mmol/L (135-145); eGFR > 60.00
== END ==
LOC: REG 07:44
PROVIDERS: ATTENDING PHYSICIAN Internal Medicine Cardiovascular Disease; FAMILY PHYSICIAN Family Medicine
DX: I10 Essential (primary) hypertension (principal); I48.21 Permanent atrial fibrillation; E78.5 Hyperlipidemia, unspecified; E11.59 Type 2 diabetes mellitus with other circulatory complications; D68.318 Other hemorrhagic disorder due to intrinsic circulating anticoagulants, antibodies, or inhibitors
CPT/HCPCS: 36415; 80069; 85610

== ENCOUNTER 2024-07-05 21:14 | Emergency (ER) | payer MEDICARE, SELFPAY ==
[2024-07-05 21:43] LABS: % Basophils 0.6 % (0-2); % Eosinophils 3.2 % (0-6); % Immature Granulocytes 0.4 % (0-0.5); % Lymphocytes 16.4 % (20.5-51.1); % Monocytes 8.7 % (1.7-9.3); % Neutrophils 70.7 % (42.2-75.2); Absolute Basophils 0.1 10^3/uL (0-0.2); Absolute Eosinophils 0.3 10^3/uL (0-0.7); Absolute Lymphocytes 1.4 10^3/uL (1.2-3.4); Absolute Monocytes 0.7 10^3/uL (0.1-0.6); Absolute Neutrophils 5.8 10^3/uL (1.4-6.5); Hematocrit 34.8 % (39.0-52.0); Hemoglobin 11.8 g/dL (13.0-18.0); Mean Corp Hgb Conc. 33.9 g/dL (33.0-37.0); Mean Corpuscular Hgb 28.9 pg (27.0-31.0); Mean Corpuscular Volume 85.3 fL (80.0-94.0); Nucleated Red Blood Cells % 0 % (-); Platelet Count 169 10^3/uL (130-400); Red Blood Cell Count 4.08 10^6/uL (4.70-6.10); Red Cell Dist. Width 14.9 % (11.5-14.5); White Blood Cell Count 8.2 10^3/uL (4.8-10.8)
[2024-07-05 21:55] LABS: INR 3.01; PT 31.2 Sec (11.4-14.6)
[2024-07-05 22:00] VITALS: BP 162/70
[2024-07-05 22:02] LABS: ALT (SGPT) 25 U/L (0-50); AST (SGOT) 34 U/L (17-59); Alkaline Phosphatase 134 U/L (38-126); Blood Urea Nitrogen 27 mg/dl (9-20); Carbon Dioxide 25 mmol/L (22-30); Chloride 105 mmol/L (98-107); Estimated Creatinine Clearance 90 ml/min; Glucose 133 mg/dl (70-99); Sodium 140 mmol/L (135-145); Total Bilirubin 1.5 mg/dl (0.2-1.3); Total Protein 6.8 g/dl (6.3-8.2); eGFR > 60.00
--- NOTE | 2024-07-05 22:19 | ED.GENMED ---
History of Present Illness
<VANESSA Wade (Lenka) - Last Filed: 07/05/24 23:32>
General
Chief Complaint: Nose Bleed
Source: patient and spouse
Exam Limitations: none
Time Seen by Provider: 07/05/24 22:05
Nursing documentation reviewed up to this point in time: agreed with
History of Present Illness
History of Present Illness:
Pt is an 83yo male with PMHx of chronic heart failure, AFib s/p pacemaker, aortic stenosis s/p TAVR (11/2023), HTN who presents to the ED with epistaxis x 9 hours. Today around 1300 pt was straining on the toilet when he heard a 'pop' in his nose and
'all of a sudden there was a firehose of blood' out of his left nostril. He has tried applying pressure and leaning forward since, with no relief. The blood had dripped down his throat and come out of his right nostril too, but the primary bleed is
in the left nostril. Pt states this evening he began to feel lightheaded and dizzy, causing him to come to the ED. Denies visual changes, syncope, MOLINA, palpitations, dyspnea, recent URI. Pt states his left nostril began bleeding about 2.5 weeks ago,
lasted 2-3 hours, he went to his PCP who was able to cauterize the vessel and insert packing, with relief of epistaxis. No issues since.
Pt is on warfarin with weekly INR monitoring (goal: 2-3). He began 'new meds post TAVR that heavily interact with his warfarin'.
Pt has a hx of HTN, home reads around 150/70.
Past History
<VANESSA Wade (Lenka) - Last Filed: 07/05/24 23:32>
Past History
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
syndrome, Diverticulitis, Glaucoma, ) and Other (BPH, deviated septum, left eye glaucoma)
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
Patient has exhibited threatening behavior?: No
PSI?: No
Social History
Tobacco: Non-smoker
Alcohol: Occasional (Beer 2 sometimes daily)
Drug: None
Personal:
Living: with family
Employment: Retired
Family History
Family History: CAD
Phy Exam
<VANESSA Wade (Lenka) - Last Filed: 07/05/24 23:32>
General Physical Exam
General Presentation: mild distress
General age: appears stated age
General Skin: warm, dry and pale
General Habitus: normal
General Mental: alert
ENT Exam
ENT Exam: pharynx normal
Additional ENT: actively bleeding from L nostril, no visible wound
Eye Exam
Eye Exam: PERRL
Cardiovascular Exam
Cardiovascular Exam: regular rate/rhythm, no edema, no gallop and normal peripheral pulses
Pulmonary Exam
Pulmonary Exam: lungs clear, no respiratory distress, no rales, no crackles, no rhonchi, no wheezing and no cough
Gastrointestinal Exam
Gastrointestinal Exam: non distended
Skin Exam
Skin Exam: warm/dry and pallor
Psychiatric Exam
Psychiatric Exam: normal mood/affect
Course
<VANESSA Wade (Lenka) - Last Filed: 07/05/24 23:32>
Orders/Labs/Results
Orders:
Orders
07/05/24 21:36
Complete Blood Count/With Diff Urgent
Comprehensive Metabolic Panel Urgent
PT/INR [Prothrombin Time] Urgent
Abnormal Lab Results
07/05/24
21:36
RBC 4.08 L 10^6/uL
(4.70-6.10)
Hgb 11.8 L g/dL
(13.0-18.0)
Hct 34.8 L %
(39.0-52.0)
RDW 14.9 H %
(11.5-14.5)
MPV 12.0 H fL
(7.4-10.4)
Absolute Monos (auto) 0.7 H 10^3/uL
(0.1-0.6)
Lymphocytes % 16.4 L %
(20.5-51.1)
PT 31.2 H Sec
(11.4-14.6)
BUN 27 H mg/dl
(9-20)
Glucose 133 H mg/dl
(70-99)
Total Bilirubin 1.5 H mg/dl
(0.2-1.3)
Alkaline Phosphatase 134 H U/L
(38-126)
07/05/24 21:36
07/05/24 21:36
Vital Signs
Initial and Last Documented VS:
Initial Vital Signs
Pulse Resp Pulse Ox
60 13 95
07/05/24 21:29 07/05/24 21:29 07/05/24 21:29
Last Documented Vital Signs
Pulse Resp BP Pulse Ox
69 21 164/75 94
07/06/24 00:00 07/06/24 00:00 07/06/24 00:00 07/06/24 00:00
jacob;Cole Ramos, - Last Filed: 07/06/24 00:36>
Orders/Labs/Results
Orders:
Orders
07/05/24 21:36
Complete Blood Count/With Diff Urgent
Comprehensive Metabolic Panel Urgent
PT/INR [Prothrombin Time] Urgent
Abnormal Lab Results
07/05/24
21:36
RBC 4.08 L 10^6/uL
(4.70-6.10)
Hgb 11.8 L g/dL
(13.0-18.0)
Hct 34.8 L %
(39.0-52.0)
RDW 14.9 H %
(11.5-14.5)
MPV 12.0 H fL
(7.4-10.4)
Absolute Monos (auto) 0.7 H 10^3/uL
(0.1-0.6)
Lymphocytes % 16.4 L %
(20.5-51.1)
PT 31.2 H Sec
(11.4-14.6)
BUN 27 H mg/dl
(9-20)
Glucose 133 H mg/dl
(70-99)
Total Bilirubin 1.5 H mg/dl
(0.2-1.3)
Alkaline Phosphatase 134 H U/L
(38-126)
07/05/24 21:36
07/05/24 21:36
Vital Signs
Initial and Last Documented VS:
Initial Vital Signs
Pulse Resp Pulse Ox
60 13 95
07/05/24 21:29 07/05/24 21:29 07/05/24 21:29
Last Documented Vital Signs
Pulse Resp BP Pulse Ox
69 21 164/75 94
07/06/24 00:00 07/06/24 00:00 07/06/24 00:00 07/06/24 00:00
<VANESSA Wade (Lenka) - Last Filed: 07/05/24 23:32>
MDM/Problems Addressed
Differential Diagnosis Includes:
83 yo male with L epistaxis x 9 hours, on warfarin.
Hx of silver cautery to L septum 2.5 weeks ago with nasal packing.
DDx: anterior epistaxis vs posterior epistaxis
Will nasal pack with epi to occlude blood vessels.
Update 2300: packing with epi has halted the bleed.
Chronic conditions affecting care: HTN and Arrhythmia
<VANESSA Wade (Lenka) - Last Filed: 07/05/24 23:32>
*Critical Care Note
Total Time (30-74mins, 75-104mins- exclusive of procedures): Not Applicable
<Cole Ramos DO - Last Filed: 07/06/24 00:36>
Patient Management
Social determinants of health affecting care: Strong social support
<Cole Ramos DO - Last Filed: 07/06/24 00:36>
Update Note
Update Note:
07/05/2024 2350 PM: Rhino Rocket removed. There is no septal hematoma. The nasopharynx is clear. There is no clotting or evidence of extravasation. We will continue to observe.
07/06/2024 0034 AM: Still no bleeding. On repeat exam, there is a small area that may have been the source of the bleeding. I did use silver nitrate to cauterize this. Patient tolerated procedure well with no immediate adverse effects.
ED Attending Note
<VANESSA Wade (Lenka) - Last Filed: 07/05/24 23:32>
-
Portions of this chart may have been created with voice recognition software.� Occasional wrong word or��sound alike� substitutions may have occurred due to the inherent limitations of voice recognition software.
<Cole Ramos DO - Last Filed: 07/06/24 00:36>
ED Attending Note
Patient seen and examined by attending physician: Yes
I performed the substantive portion of visit, reviewed & personally made and approve the management plan that is documented in note by myself or JIM.: Yes
ED Attending Note:
Pleasant 83-year-old male presents with nosebleed. He states it started around 1 PM while sitting on the toilet. He reports that it has not stopped. Patient is on Coumadin. He has a history of atrial fibrillation. He has been monitoring his
INRs weekly. Today's INR 3.01 is slightly higher than his normal. Patient states he was straining when he heard a 'pop 'in his nose. He states that there was a lot of blood. He reports that this happened 2-1/2 weeks ago. His primary care
provider was able to cauterize his nostril. Tonight patient started feel lightheaded and dizzy so he came into the emergency department for evaluation. Patient was seen in conjunction with the PA student. I have reviewed and agree with the
history and treatment plan presented. On my independent physical exam, patient is awake, alert, and oriented x3, moderate acute distress. Epistaxis in the left nostril. Patient, despite the nosebleed, resting comfortably in the bed.
5.5 cm Rhino Rocket placed in the left nostril. Will continue to observe.
Discharge Plan
Departure
Patient Disposition: Home (Routine Discharge)
Date of Disposition: 07/06/24
Time of Disposition: 00:35
Patient with high blood pressure during this ER visit?: Yes
Condition: Good
Discharge Problem:
Epistaxis
Instructions: Nosebleeds (DC), BLOOD PRESSURE
Prescriptions:
No Action
finasteride 5 MG tablet
5 mg PO HS
metformin 500 mg tablet
500 mg PO HS
warfarin 2.5 mg Tablet
2.5 mg PO HS
furosemide 20 mg Tablet
20 mg PO DAILY Qty: 0 0RF
metoprolol succinate 25 mg Tablet Extended Release 24 Hr
12.5 mg PO HS
atorvastatin 20 mg tablet
20 mg PO HS
lisinopril 20 mg Tablet
20 mg PO DAILY
paroxetine HCl [Paxil] 20 mg Tablet
20 mg PO DAILY
Referrals:
Phill Selby MD [Family Provider] -
Bryon Young MD [Active] - As needed
Activity Restrictions/Additional Instructions:
It was a pleasure meeting you and taking part in your care. We hope for your continued healing and wellness.
Please read discharge instructions in their entirety. However, they are for general education and may not describe your exact diagnosis at discharge. Information on your ER visit and medical conditions were discussed with you along with appropriate
follow up information...
If indicated, please take your medications as instructed and indicated on discharge paperwork.
Please schedule a follow up appointment as directed. Call to schedule an appointment
Please return to the emergency department with ANY change in, persisting, or worsening of symptoms. If any of your symptoms do not improve, or persist, or become more severe within 6-12 hours, please return to the emergency department for further
care.
Please return to the emergency department if you develop a headache, neck pain/stiffness, fever greater than 100.4F, chest pain, shortness of breath, persistent nausea, vomiting, slurred speech, difficulty walking, numbness/tingling, weakness, signs
of infection or any other symptoms that are worrisome to you.
If you have any questions or concerns please do not hesitate to call the Hospital at or E-mail me directly at [email or web address]
Interventions
Interventions:
*Risk Screen - Suicide Last Done: 07/05/24 21:18
*General Assessment Last Done: 07/05/24 21:18
*Neglect/Abuse Screening Last Done: 07/05/24 21:18
ED- Fall Risk Assessment Last Done: 07/05/24 21:23
*ED COVID-19 Vaccine History Last Done: 07/05/24 21:18
ED-EENT Assessment Last Done: 07/05/24 21:23
Discharge Date and Time
Print Language: BENINESE
[2024-07-05 23:00] VITALS: BP 168/71
[2024-07-06] VITALS: BP 164/75
[2024-07-06 00:37] VITALS: BP 164/75
== END 2024-07-06 01:04 | disposition home or self-care (01) ==
LOC: EMR 21:14
PROVIDERS: Emergency Medicine; EMERGENCY PHYSICIAN Student in an Organized Health Care Education/Training Program; FAMILY PHYSICIAN Family Medicine
DX: R04.0 Epistaxis (principal); I11.0 Hypertensive heart disease with heart failure; I50.9 Heart failure, unspecified; I35.0 Nonrheumatic aortic (valve) stenosis; I48.91 Unspecified atrial fibrillation; E11.9 Type 2 diabetes mellitus without complications; E78.00 Pure hypercholesterolemia, unspecified; F41.9 Anxiety disorder, unspecified; N40.0 Benign prostatic hyperplasia without lower urinary tract symptoms; Z79.01 Long term (current) use of anticoagulants; Z82.49 Family history of ischemic heart disease and other diseases of the circulatory system; Z85.828 Personal history of other malignant neoplasm of skin; Z90.49 Acquired absence of other specified parts of digestive tract; Z95.0 Presence of cardiac pacemaker; Z95.2 Presence of prosthetic heart valve
CPT/HCPCS: 99282; 80053; 85025; 85610

== ENCOUNTER → 2024-08-01 07:30 | Outpatient (REF) | payer MEDICARE, SELFPAY ==
[2024-08-01 08:50] LABS: INR 2.54; PT 27.2 Sec (11.4-14.6)
[2024-08-01 09:17] LABS: Albumin 4.2 g/dl (3.5-5.0); Blood Urea Nitrogen 21 mg/dl (9-20); Calcium 9.4 mg/dl (8.4-10.2); Carbon Dioxide 29 mmol/L (22-30); Chloride 103 mmol/L (98-107); Glucose 117 mg/dl (70-99); Phosphorus 4.5 mg/dl (2.5-4.5); Potassium 4.1 mmol/L (3.5-5.1); Sodium 146 mmol/L (135-145); eGFR > 60.00
== END ==
LOC: REG 07:30
PROVIDERS: ATTENDING PHYSICIAN Internal Medicine Cardiovascular Disease; FAMILY PHYSICIAN Family Medicine
DX: I10 Essential (primary) hypertension (principal); Z95.2 Presence of prosthetic heart valve; R53.83 Other fatigue; I34.0 Nonrheumatic mitral (valve) insufficiency; I07.1 Rheumatic tricuspid insufficiency
CPT/HCPCS: 36415; 80069; 85610

== ENCOUNTER → 2024-08-15 07:11 | Outpatient (REF) | payer MEDICARE, SELFPAY ==
[2024-08-15 08:09] LABS: INR 2.45; PT 26.4 Sec (11.4-14.6)
[2024-08-15 08:59] LABS: Albumin 4.1 g/dl (3.5-5.0); Blood Urea Nitrogen 22 mg/dl (9-20); Calcium 9.2 mg/dl (8.4-10.2); Carbon Dioxide 27 mmol/L (22-30); Chloride 101 mmol/L (98-107); Glucose 115 mg/dl (70-99); Phosphorus 4.4 mg/dl (2.5-4.5); Potassium 4.1 mmol/L (3.5-5.1); Sodium 142 mmol/L (135-145); eGFR > 60.00
== END ==
LOC: REG 07:11
PROVIDERS: ATTENDING PHYSICIAN Internal Medicine Cardiovascular Disease; FAMILY PHYSICIAN Family Medicine
DX: I10 Essential (primary) hypertension (principal); Z95.2 Presence of prosthetic heart valve; R53.83 Other fatigue; R21 Rash and other nonspecific skin eruption; I34.0 Nonrheumatic mitral (valve) insufficiency; I07.1 Rheumatic tricuspid insufficiency; I50.20 Unspecified systolic (congestive) heart failure; D68.318 Other hemorrhagic disorder due to intrinsic circulating anticoagulants, antibodies, or inhibitors
CPT/HCPCS: 36415; 80069; 85610

== ENCOUNTER → 2024-09-12 07:23 | Outpatient (REF) | payer MEDICARE, SELFPAY ==
[2024-09-12 08:27] LABS: INR 2.93; PT 30.5 Sec (11.4-14.6)
[2024-09-12 08:49] LABS: Albumin 4.2 g/dl (3.5-5.0); Blood Urea Nitrogen 21 mg/dl (9-20); Calcium 9.3 mg/dl (8.4-10.2); Carbon Dioxide 28 mmol/L (22-30); Chloride 104 mmol/L (98-107); Glucose 118 mg/dl (70-99); Potassium 3.8 mmol/L (3.5-5.1); Sodium 145 mmol/L (135-145); eGFR > 60.00
== END ==
LOC: REG 07:23
PROVIDERS: ATTENDING PHYSICIAN Internal Medicine Cardiovascular Disease; FAMILY PHYSICIAN Family Medicine
DX: D68.318 Other hemorrhagic disorder due to intrinsic circulating anticoagulants, antibodies, or inhibitors (principal); I10 Essential (primary) hypertension; Z95.2 Presence of prosthetic heart valve; R53.83 Other fatigue; I34.0 Nonrheumatic mitral (valve) insufficiency; I07.1 Rheumatic tricuspid insufficiency
CPT/HCPCS: 36415; 80069; 85610

== ENCOUNTER → 2024-10-01 10:03 | Outpatient (REF) | payer MEDICARE, SELFPAY ==
[2024-10-01 12:17] LABS: Blood Urea Nitrogen 20 mg/dl (9-20); Calcium 9.1 mg/dl (8.4-10.2); Carbon Dioxide 28 mmol/L (22-30); Chloride 102 mmol/L (98-107); Glucose 168 mg/dl (70-99); Potassium 3.8 mmol/L (3.5-5.1); Sodium 144 mmol/L (135-145); eGFR > 60.00
== END ==
LOC: REG 10:03
PROVIDERS: ATTENDING PHYSICIAN Internal Medicine Cardiovascular Disease; FAMILY PHYSICIAN Family Medicine
DX: I50.1 Left ventricular failure, unspecified (principal)
CPT/HCPCS: 36415; 80048

== ENCOUNTER → 2024-10-10 07:09 | Outpatient (REF) | payer MEDICARE, SELFPAY ==
[2024-10-10 08:31] LABS: INR 3.03; PT 31.3 Sec (11.4-14.6)
[2024-10-10 08:35] LABS: % Basophils 0.7 % (0-2); % Eosinophils 5.8 % (0-6); % Immature Granulocytes 0.4 % (0-0.5); % Lymphocytes 17.1 % (20.5-51.1); % Monocytes 10.5 % (1.7-9.3); % Neutrophils 65.5 % (42.2-75.2); Absolute Basophils 0.1 10^3/uL (0-0.2); Absolute Eosinophils 0.4 10^3/uL (0-0.7); Absolute Lymphocytes 1.2 10^3/uL (1.2-3.4); Absolute Monocytes 0.7 10^3/uL (0.1-0.6); Absolute Neutrophils 4.6 10^3/uL (1.4-6.5); Hematocrit 37.3 % (39.0-52.0); Hemoglobin 11.8 g/dL (13.0-18.0); Mean Corp Hgb Conc. 31.6 g/dL (33.0-37.0); Mean Corpuscular Hgb 26.4 pg (27.0-31.0); Mean Corpuscular Volume 83.4 fL (80.0-94.0); Mean Platelet Volume 11.5 fL (7.4-10.4); Nucleated Red Blood Cells % 0 % (-); Platelet Count 195 10^3/uL (130-400); Red Blood Cell Count 4.47 10^6/uL (4.70-6.10); Red Cell Dist. Width 17.6 % (11.5-14.5); White Blood Cell Count 7.1 10^3/uL (4.8-10.8)
[2024-10-10 08:57] LABS: ALT (SGPT) 23 U/L (0-50); AST (SGOT) 41 U/L (17-59); Albumin 4.1 g/dl (3.5-5.0); Alkaline Phosphatase 172 U/L (38-126); Blood Urea Nitrogen 27 mg/dl (9-20); Calcium 9.2 mg/dl (8.4-10.2); Carbon Dioxide 29 mmol/L (22-30); Chloride 102 mmol/L (98-107); Glucose 122 mg/dl (70-99); Potassium 4.7 mmol/L (3.5-5.1); Sodium 145 mmol/L (135-145); Total Bilirubin 1.7 mg/dl (0.2-1.3); Total Protein 7.3 g/dl (6.3-8.2); eGFR > 60.00
[2024-10-10 09:14] LABS: Free T4 1.24 ng/dl (0.78-2.19)
[2024-10-10 10:07] LABS: Glycohemoglobin (HgbA1c) 7.2 % (4.0-5.6)
== END ==
LOC: REG 07:09
PROVIDERS: ATTENDING PHYSICIAN Family Medicine; REFERRING PHYSICIAN Internal Medicine Cardiovascular Disease
DX: D68.318 Other hemorrhagic disorder due to intrinsic circulating anticoagulants, antibodies, or inhibitors (principal); I48.21 Permanent atrial fibrillation; I35.0 Nonrheumatic aortic (valve) stenosis; L40.9 Psoriasis, unspecified; F41.0 Panic disorder [episodic paroxysmal anxiety]; N39.0 Urinary tract infection, site not specified; R63.4 Abnormal weight loss; E11.9 Type 2 diabetes mellitus without complications
CPT/HCPCS: 36415; 80053; 83036; 84439; 85025; 85610

== ENCOUNTER → 2024-10-27 11:03 | Outpatient (REF) | payer MEDICARE, SELFPAY | LOC: RAD 11:03 | PROVIDERS: ATTENDING PHYSICIAN Internal Medicine Cardiovascular Disease; FAMILY PHYSICIAN Family Medicine | DX: R14.0 Abdominal distension (gaseous) (principal); I10 Essential (primary) hypertension; R10.9 Unspecified abdominal pain | CPT/HCPCS: 76700 ==

== ENCOUNTER → 2024-10-31 13:05 | Outpatient (REF) | payer MEDICARE, SELFPAY | LOC: RAD 13:05 | PROVIDERS: ATTENDING PHYSICIAN Family Medicine; FAMILY PHYSICIAN Internal Medicine Cardiovascular Disease | DX: R18.8 Other ascites (principal); R16.1 Splenomegaly, not elsewhere classified | CPT/HCPCS: 74177; Q9967 ==

== ENCOUNTER → 2024-11-11 11:44 | Outpatient (REF) | payer MEDICARE, SELFPAY ==
[2024-11-11 13:02] LABS: % Basophils 0.8 % (0-2); % Eosinophils 0.2 % (0-6); % Immature Granulocytes 0.2 % (0-0.5); % Neutrophils 67.8 % (42.2-75.2); Absolute Lymphocytes 0.6 10^3/uL (1.2-3.4); Absolute Monocytes 0.9 10^3/uL (0.1-0.6); Absolute Neutrophils 3.4 10^3/uL (1.4-6.5); Hematocrit 39.1 % (39.0-52.0); Hemoglobin 12.5 g/dL (13.0-18.0); Mean Corpuscular Hgb 26.3 pg (27.0-31.0); Mean Corpuscular Volume 82.3 fL (80.0-94.0); Mean Platelet Volume 11.1 fL (7.4-10.4); Nucleated Red Blood Cells % 0 % (-); Platelet Count 193 10^3/uL (130-400); Red Blood Cell Count 4.75 10^6/uL (4.70-6.10); Red Cell Dist. Width 20.6 % (11.5-14.5); White Blood Cell Count 4.9 10^3/uL (4.8-10.8)
[2024-11-11 13:09] LABS: INR 3.49; PT 34.8 Sec (11.4-14.6)
[2024-11-11 13:48] LABS: ALT (SGPT) 70 U/L (0-50); AST (SGOT) 154 U/L (17-59); Alkaline Phosphatase 157 U/L (38-126); Blood Urea Nitrogen 24 mg/dl (9-20); Calcium 8.8 mg/dl (8.4-10.2); Carbon Dioxide 29 mmol/L (22-30); Chloride 98 mmol/L (98-107); Glucose 141 mg/dl (70-99); Potassium 4.6 mmol/L (3.5-5.1); Sodium 138 mmol/L (135-145); Total Bilirubin 2.4 mg/dl (0.2-1.3); Total Protein 7.3 g/dl (6.3-8.2); eGFR > 60.00
== END ==
LOC: REG 11:44
PROVIDERS: ATTENDING PHYSICIAN Family Medicine; FAMILY PHYSICIAN Internal Medicine Cardiovascular Disease
DX: R18.8 Other ascites (principal); D68.318 Other hemorrhagic disorder due to intrinsic circulating anticoagulants, antibodies, or inhibitors; R11.0 Nausea; R11.10 Vomiting, unspecified
CPT/HCPCS: 36415; 80053; 85025; 85610

== ENCOUNTER → 2024-11-12 14:35 | Outpatient (REF) | payer MEDICARE, SELFPAY ==
[2024-11-12 16:00] LABS: PT 29.9 Sec (11.4-14.6)
== END ==
LOC: RAD 14:35
PROVIDERS: ATTENDING PHYSICIAN Family Medicine
DX: M79.89 Other specified soft tissue disorders (principal); D68.318 Other hemorrhagic disorder due to intrinsic circulating anticoagulants, antibodies, or inhibitors; R60.0 Localized edema
CPT/HCPCS: 36415; 85610; 93971

== ENCOUNTER → 2024-11-18 08:02 | Outpatient (REF) | payer MEDICARE, SELFPAY ==
[2024-11-18 08:48] VITALS: BMI 23.0
[2024-11-18 08:52] VITALS: BP 137/57; BP_SYST 60
[2024-11-18 09:03] LABS: INR 2.21; PT 24.6 Sec (11.4-14.6)
[2024-11-18 10:11] VITALS: BP 119/57
[2024-11-18 11:05] LABS: Body Fluid Mononuclear 93.5 %; Body Fluid Polymorphonuclear 6.5 %; Body Fluid WBC 260 /CUMM
[2024-11-18 11:49] LABS: Body Fluid Second Tech AMA
[2024-11-18 12:47] LABS: Body Fluid Albumin 1.9 g/dl; Body Fluid Protein 4.1 g/dl
== END ==
LOC: RADI 08:02
PROVIDERS: ATTENDING PHYSICIAN Internal Medicine; FAMILY PHYSICIAN Family Medicine; REFERRING PHYSICIAN Internal Medicine Cardiovascular Disease
DX: R18.8 Other ascites (principal); Z79.01 Long term (current) use of anticoagulants
CPT/HCPCS: 88305; 36415; 49083; 82042; 84157; 85610; 87015; 87070; 87205; 88112; 89051

== ENCOUNTER 2024-11-27 14:30 | Emergency (ER) | payer MEDICARE, SELFPAY ==
[2024-11-27 14:45] VITALS: BP 130/54
[2024-11-27 15:04] LABS: % Basophils 0.7 % (0-2); % Eosinophils 13.7 % (0-6); % Immature Granulocytes 0.5 % (0-0.5); % Lymphocytes 9.5 % (20.5-51.1); % Monocytes 8.4 % (1.7-9.3); % Neutrophils 67.2 % (42.2-75.2); Absolute Basophils 0.1 10^3/uL (0-0.2); Absolute Eosinophils 1.2 10^3/uL (0-0.7); Absolute Lymphocytes 0.8 10^3/uL (1.2-3.4); Absolute Monocytes 0.7 10^3/uL (0.1-0.6); Absolute Neutrophils 5.8 10^3/uL (1.4-6.5); Hematocrit 29.2 % (39.0-52.0); Hemoglobin 9.5 g/dL (13.0-18.0); Mean Corp Hgb Conc. 32.5 g/dL (33.0-37.0); Mean Corpuscular Hgb 26.8 pg (27.0-31.0); Mean Corpuscular Volume 82.3 fL (80.0-94.0); Mean Platelet Volume 10.4 fL (7.4-10.4); Nucleated Red Blood Cells % 0 % (-); Platelet Count 205 10^3/uL (130-400); Red Blood Cell Count 3.55 10^6/uL (4.70-6.10); Red Cell Dist. Width 20.3 % (11.5-14.5); White Blood Cell Count 8.7 10^3/uL (4.8-10.8)
[2024-11-27 15:37] LABS: INR 2.74; PT 29.4 Sec (11.4-14.6)
[2024-11-27 15:54] LABS: ALT (SGPT) 40 U/L (0-50); AST (SGOT) 57 U/L (17-59); Albumin 3.8 g/dl (3.5-5.0); Alkaline Phosphatase 173 U/L (38-126); Blood Urea Nitrogen 37 mg/dl (9-20); Calcium 8.8 mg/dl (8.4-10.2); Carbon Dioxide 30 mmol/L (22-30); Chloride 100 mmol/L (98-107); Glucose 120 mg/dl (70-99); Potassium 4.6 mmol/L (3.5-5.1); Sodium 138 mmol/L (135-145); Total Bilirubin 1.4 mg/dl (0.2-1.3); Total Protein 7.2 g/dl (6.3-8.2); eGFR > 60.00
--- NOTE | 2024-11-27 17:02 | ED.GENMED ---
History of Present Illness
<Aziza Mathur PA-C - Last Filed: 11/27/24 23:13>
General
Chief Complaint: Fall
Source: patient and family (son at bedside)
Exam Limitations: none
Time Seen by Provider: 11/27/24 16:45
Nursing documentation reviewed up to this point in time: agreed with
History of Present Illness
History of Present Illness:
84-year-old male with history atrial fibrillation on Coumadin, CHF, hypertension presenting to the emergency department after fall. Patient states Sunday night he got up in the middle the night to go to the bathroom and had a mechanical fall
landing on his bottom. He states that he did hit the back of his head on the armoire during his fall. However there was no loss of consciousness. Patient states that he has had significant bruising on his right buttock which seems to be
expanding. Patient has significant pain when sitting. He also notes some soreness in his neck. However he denies any headache, changes in mental status. No bowel/bladder incontinence, weakness, or numbness/tingling in lower extremities. No
groin paresthesias.
Patient does take Coumadin for atrial fibrillation.
Past History
<Aziza Mathur PA-C - Last Filed: 11/27/24 23:13>
Past History
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
syndrome, Diverticulitis, Glaucoma, ) and Other (BPH, deviated septum, left eye glaucoma)
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
Patient has exhibited threatening behavior?: No
PSI?: No
Social History
Tobacco: Non-smoker
Alcohol: Occasional (Beer 2 sometimes daily)
Drug: None
Personal:
Living: with family
Employment: Retired
Family History
Family History: CAD
Review of Systems
<Aziza Mathur PA-C - Last Filed: 11/27/24 23:13>
Review of Systems
Allergies reviewed?: Yes
All Other Systems: ROS reviewed and negative except as documented in HPI and ROS
Phy Exam
<Aziza Mathur PA-C - Last Filed: 11/27/24 23:13>
Physical Exam
Physical Exam:
GENERAL: No acute distress
HEENT: atraumatic, extraocular muscles intact, no signs of entrapment, dentition intact, no other obvious trauma
NECK: Very mild midline cervical spine tenderness, NEXUS criteria negative, no other obvious trauma
BACK: no midline tenderness, no other obvious trauma
CHEST: no tenderness, no flail segment, no subcutaneous emphysema, no other obvious trauma
LUNGS: clear to auscultation bilaterally
CARDIOVASCULAR: regular rate and rhythm
ABDOMEN: soft, non-tender, no masses, no other obvious trauma
PELVIS: stable, significant, tender hematoma on right buttock
EXTREMITIES: moving all extremities, full range of motion in right and left hips without any tenderness present with internal/external rotation. Bilateral lower extremities without any significant edema, bruising. Distal pulses intact, no other
obvious trauma. Erythema to bilateral forearms without any red streaking or drainage. Bilateral upper and lower extremities neurovascularly intact.
NEUROLOGIC: awake, alert x 3, no focal deficits.
Course
<Aziza Mathur PA-C - Last Filed: 11/27/24 23:13>
Orders/Labs/Results
Orders:
Orders
11/27/24 14:49
CT Head W/o Iv Contrast Urgent
Comment: pt is on coumadin
Reason For Exam: fell and hit head and right back
11/27/24 14:56
Complete Blood Count/With Diff Urgent
Comprehensive Metabolic Panel Urgent
PT/INR [Prothrombin Time] Urgent
11/27/24 17:02
Interrogate Pacemaker- Treatment ONCE
11/27/24 17:33
Cervical Spine wo Contrast CT [CT Cervical Spine W/o Iv Contr] Urgent
Comment:
Reason For Exam: fall, posterior head strike
Pelvis Angio w/wo Contrast CT [CT Pelvis Angio W/wo Iv Contra] Urgent
Comment: on coumadin, hgb trending down
Reason For Exam: expanding hematoma left buttock s/p fall
11/27/24 18:14
Morphine Sulfate 4 mg IV NOW STA
Abnormal Lab Results
11/27/24
14:56
RBC 3.55 L 10^6/uL
(4.70-6.10)
Hgb 9.5 L g/dL
(13.0-18.0)
Hct 29.2 L %
(39.0-52.0)
MCH 26.8 L pg
(27.0-31.0)
MCHC 32.5 L g/dL
(33.0-37.0)
RDW 20.3 H %
(11.5-14.5)
Absolute Lymphs (auto) 0.8 L 10^3/uL
(1.2-3.4)
Absolute Monos (auto) 0.7 H 10^3/uL
(0.1-0.6)
Absolute Eos (auto) 1.2 H 10^3/uL
(0-0.7)
Lymphocytes % 9.5 L %
(20.5-51.1)
Eosinophils % 13.7 H %
(0-6)
PT 29.4 H Sec
(11.4-14.6)
BUN 37 H mg/dl
(9-20)
Glucose 120 H mg/dl
(70-99)
Total Bilirubin 1.4 H mg/dl
(0.2-1.3)
Alkaline Phosphatase 173 H U/L
(38-126)
11/27/24 14:56
11/27/24 14:56
Vital Signs
Initial and Last Documented VS:
Initial Vital Signs
Temp Pulse Resp BP Pulse Ox
98.2 F 66 16 130/54 98
11/27/24 14:45 11/27/24 14:45 11/27/24 14:45 11/27/24 14:45 11/27/24 14:45
Last Documented Vital Signs
Temp Pulse Resp BP Pulse Ox
98.2 F 75 18 137/68 99
11/27/24 14:45 11/27/24 20:28 11/27/24 20:28 11/27/24 20:28 11/27/24 20:28
<Andrew Cruz, DO - Last Filed: 11/27/24 18:21>
Orders/Labs/Results
Orders:
Orders
11/27/24 14:49
CT Head W/o Iv Contrast Urgent
Comment: pt is on coumadin
Reason For Exam: fell and hit head and right back
11/27/24 14:56
Complete Blood Count/With Diff Urgent
Comprehensive Metabolic Panel Urgent
PT/INR [Prothrombin Time] Urgent
11/27/24 17:02
Interrogate Pacemaker- Treatment ONCE
11/27/24 17:33
Cervical Spine wo Contrast CT [CT Cervical Spine W/o Iv Contr] Urgent
Comment:
Reason For Exam: fall, posterior head strike
Pelvis Angio w/wo Contrast CT [CT Pelvis Angio W/wo Iv Contra] Urgent
Comment: on coumadin, hgb trending down
Reason For Exam: expanding hematoma left buttock s/p fall
11/27/24 18:14
Morphine Sulfate 4 mg IV NOW STA
Abnormal Lab Results
11/27/24
14:56
RBC 3.55 L 10^6/uL
(4.70-6.10)
Hgb 9.5 L g/dL
(13.0-18.0)
Hct 29.2 L %
(39.0-52.0)
MCH 26.8 L pg
(27.0-31.0)
MCHC 32.5 L g/dL
(33.0-37.0)
RDW 20.3 H %
(11.5-14.5)
Absolute Lymphs (auto) 0.8 L 10^3/uL
(1.2-3.4)
Absolute Monos (auto) 0.7 H 10^3/uL
(0.1-0.6)
Absolute Eos (auto) 1.2 H 10^3/uL
(0-0.7)
Lymphocytes % 9.5 L %
(20.5-51.1)
Eosinophils % 13.7 H %
(0-6)
PT 29.4 H Sec
(11.4-14.6)
BUN 37 H mg/dl
(9-20)
Glucose 120 H mg/dl
(70-99)
Total Bilirubin 1.4 H mg/dl
(0.2-1.3)
Alkaline Phosphatase 173 H U/L
(38-126)
11/27/24 14:56
11/27/24 14:56
Vital Signs
Initial and Last Documented VS:
Initial Vital Signs
Temp Pulse Resp BP Pulse Ox
98.2 F 66 16 130/54 98
11/27/24 14:45 11/27/24 14:45 11/27/24 14:45 11/27/24 14:45 11/27/24 14:45
Last Documented Vital Signs
Temp Pulse Resp BP Pulse Ox
98.2 F 75 18 137/68 99
11/27/24 14:45 11/27/24 20:28 11/27/24 20:28 11/27/24 20:28 11/27/24 20:28
<Aziza Mathur PA-C - Last Filed: 11/27/24 23:13>
MDM/Problems Addressed
Differential Diagnosis Includes:
Not limited to: Hematoma, pelvic fracture, cervical spine fracture, concussion, intraparenchymal hemorrhage, etc.
MDM/Problems Addressed:
84-year-old male with history as documented presenting with hematoma to right buttock after mechanical fall 5 days prior to arrival. There was mild head strike at that time although no loss of consciousness. Patient is on Coumadin. Patiently
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 Patient denies headache, fever, back pain, lower extremity weakness, numbness/tingling, bowel/bladder incontinence, groin paresthesia, or other red flag
back pain symptoms patient is stable vital signs on arrival. He is afebrile. Labs initiated in triage show no leukocytosis. There is a mild drop in hemoglobin from prior. Chemistry without clinically significant abnormalities. Head CT obtained
prior to my evaluation without any acute abnormalities. Physical exam as above. Given significant hematoma on Coumadin with drop in hemoglobin�will obtain CT hip to rule out active extravasation. Will check C-spine CT, as well. Pain control.
Will closely monitor.
Update: CT cervical spine without any acute abnormalities. CTA pelvis shows no pelvic fracture. Hematoma noted to right gluteus cassia without any active hemorrhage. Patient is afebrile with no leukocytosis�do not suspect infectious process.
Patient ambulating around department without difficulty. Patient was offered admission for observation/PT and case management consult tomorrow. Patient declines and wants to be discharged home where he has assistance. Did obtain pacemaker
interrogation that showed no arrhythmias since last interrogation. Discussed importance of monitoring very closely for signs of infection. Did advise speaking with PCP and discontinuing Coumadin for few days. Otherwise as patient stable for
discharge with very close return precautions. He will follow with PCP in a few days. He will continue to follow with dermatology for rash on arms case seen with attending physician.
Chronic conditions affecting care:
Atrial fibrillation on Coumadin, hypertension
Acute Exacerbation and/or Progression of Chronic Illness:
Acute hematoma without active extravasation
<Aziza Mathur PA-C - Last Filed: 11/27/24 23:13>
*Radiology
Radiology exam reviewed: radiology read reviewed
*Pulse Oximetry
Patient hypoxic: no
*EKG
Interpreted by ED Provider?: NA
*Stock Turner Interpretation
Rate: Stock Turner- N/A
*Critical Care Note
Total Time (30-74mins, 75-104mins- exclusive of procedures): Not Applicable
<Aziza Mathur PA-C - Last Filed: 11/27/24 23:13>
Patient Management
Escalation/DeEscalation of care consider admission/obs:
Admission offered to patient for observation, PT/case management-but she declined will be discharged home with close return precautions
ED Attending Note
<Aziza Mathur PA-C - Last Filed: 11/27/24 23:13>
-
Portions of this chart may have been created with voice recognition software.� Occasional wrong word or��sound alike� substitutions may have occurred due to the inherent limitations of voice recognition software.
<Andrew Cruz DO - Last Filed: 11/27/24 18:21>
ED Attending Note
Patient seen and examined by attending physician: Yes
I performed the substantive portion of visit, reviewed & personally made and approve the management plan that is documented in note by myself or JIM.: Yes
ED Attending Note:
I have seen and evaluated the patient with a [id number] encounter. I have spoken to the advance practicer provider and involved in the medical history, the physical exam, medical decision making.
Evaluation and management service: agree unless noted differently below.
Results interpretation: agree unless noted differently below.
Focused HPI: 84-year-old male presenting after a slip and fall. This occurred a few days ago. Patient is concerned because he has an enlarging hematoma on his right buttock. Blood work and CT head were done prior to my evaluation. CT head
negative. Patient does have a mild drop in his hemoglobin and his Coumadin level is therapeutic.
Physical exam: Large hematoma to right buttock. Distal extremity neurovascularly intact
Medical Decision Making: Will obtain CT angiogram to look for active extravasation into the hematoma.
Discharge Plan
Departure
Patient Disposition: Home (Routine Discharge)
Date of Disposition: 11/27/24
Time of Disposition: 21:28
Patient with high blood pressure during this ER visit?: Yes
Condition: Good
Covid-19: Not Applicable
Discharge Problem:
Hematoma of right buttock, Fall
Instructions: Preventing falls in adults, BLOOD PRESSURE, Hematoma
Prescriptions:
No Action
finasteride 5 MG tablet
5 mg PO HS
metformin 500 mg tablet
500 mg PO HS
warfarin 2.5 mg Tablet
2.5 mg PO HS
metoprolol succinate 25 mg Tablet Extended Release 24 Hr
12.5 mg PO HS
atorvastatin 20 mg tablet
20 mg PO HS
lisinopril 20 mg Tablet
20 mg PO DAILY
paroxetine HCl [Paxil] 20 mg Tablet
20 mg PO DAILY
spironolactone 25 mg Tablet
25 mg PO DAILY
furosemide 20 mg tablet
40 mg PO BID
Referrals:
Phill Selby MD [Family Provider] - Follow up in 2-3 days
Activity Restrictions/Additional Instructions:
RETURN TO THE EMERGENCY DEPARTMENT WITH ANY FEVERS, CHEST PAIN, SHORTNESS OF BREATH, DIFFICULTY AMBULATING, INTRACTABLE PAIN OR ANY SIGNS OF INFECTION INCLUDING WORSENING REDNESS OR SWELLING AROUND HEMATOMA, RED STREAKING AWAY FROM HEMATOMA, WARMTH,
OR ANY OTHER CONCERNS
-As discussed�your imaging showed no active bleeding from the hematoma. This will likely take a few weeks to resolve. However�I would recommend stopping your Coumadin for a few days. You should then follow closely with your primary care to have
INR repeated and restart as directed. You should also ensure that your hemoglobin is trended to ensure that it is trending up.
-You can take Tylenol as needed for discomfort. You can apply ice to the area
-Follow-up closely with primary care and dermatology for further evaluation/management
Monitor your symptoms closely return to the emergency acute worsening/new symptoms or any other concerns
Interventions
Interventions:
*Risk Screen - Suicide Last Done: 11/27/24 14:45
*General Assessment Last Done: 11/27/24 17:16
*Neglect/Abuse Screening Last Done: 11/27/24 14:45
ED- Fall Risk Assessment Last Done: 11/27/24 17:39
*ED COVID-19 Vaccine History Last Done: 11/27/24 17:16
*Nursing Disposition Last Done: 11/27/24 21:54
ED-Musculoskeletal Assessment Last Done: 11/27/24 17:38
ED- Neurological Assessment Last Done: 11/27/24 17:38
ED-Skin Assessment Last Done: 11/27/24 17:38
Discharge Date and Time
Discharge Date/Time: 11/27/24 21:55
Print Language: CROATIAN
[2024-11-27 17:37] VITALS: BP 134/72
[2024-11-27] MEDS: MORPHINE SULFATE 4 MG IV (18:41)
[2024-11-27 20:28] VITALS: BP 137/68
== END 2024-11-27 21:55 | disposition home or self-care (01) ==
LOC: EMR 14:30
PROVIDERS: Emergency Medicine; EMERGENCY PHYSICIAN Student in an Organized Health Care Education/Training Program; FAMILY PHYSICIAN Family Medicine
DX: S30.0XXA Contusion of lower back and pelvis, initial encounter (principal); S09.90XA Unspecified injury of head, initial encounter; M54.2 Cervicalgia; W01.0XXA Fall on same level from slipping, tripping and stumbling without subsequent striking against object, initial encounter; I48.91 Unspecified atrial fibrillation; L53.9 Erythematous condition, unspecified; I11.0 Hypertensive heart disease with heart failure; I50.9 Heart failure, unspecified; N40.0 Benign prostatic hyperplasia without lower urinary tract symptoms; E78.00 Pure hypercholesterolemia, unspecified; F41.9 Anxiety disorder, unspecified; K57.92 Diverticulitis of intestine, part unspecified, without perforation or abscess without bleeding; H40.9 Unspecified glaucoma; K74.60 Unspecified cirrhosis of liver; K57.90 Diverticulosis of intestine, part unspecified, without perforation or abscess without bleeding; M19.90 Unspecified osteoarthritis, unspecified site; E11.36 Type 2 diabetes mellitus with diabetic cataract; G93.32 Myalgic encephalomyelitis/chronic fatigue syndrome; F41.0 Panic disorder [episodic paroxysmal anxiety]; Z95.0 Presence of cardiac pacemaker; Z85.828 Personal history of other malignant neoplasm of skin; Z79.01 Long term (current) use of anticoagulants; Z79.84 Long term (current) use of oral hypoglycemic drugs; Z88.1 Allergy status to other antibiotic agents; Z88.0 Allergy status to penicillin; Z88.2 Allergy status to sulfonamides; Z88.8 Allergy status to other drugs, medicaments and biological substances
CPT/HCPCS: 99285; 96374; 93288; 70450; 72125; 72191; 80053; 85025; 85610; Q9967

== ENCOUNTER → 2024-12-12 07:06 | Outpatient (REF) | payer MEDICARE, SELFPAY ==
[2024-12-12 08:28] LABS: INR 1.84; PT 21.4 Sec (11.4-14.6)
[2024-12-12 08:41] LABS: % Basophils 0.9 % (0-2); % Eosinophils 7.1 % (0-6); % Immature Granulocytes 0.4 % (0-0.5); % Lymphocytes 15.4 % (20.5-51.1); % Monocytes 8.5 % (1.7-9.3); % Neutrophils 67.7 % (42.2-75.2); Absolute Basophils 0.1 10^3/uL (0-0.2); Absolute Eosinophils 0.5 10^3/uL (0-0.7); Absolute Lymphocytes 1.2 10^3/uL (1.2-3.4); Absolute Monocytes 0.7 10^3/uL (0.1-0.6); Absolute Neutrophils 5.2 10^3/uL (1.4-6.5); Hematocrit 33.5 % (39.0-52.0); Hemoglobin 10.7 g/dL (13.0-18.0); Mean Corp Hgb Conc. 31.9 g/dL (33.0-37.0); Mean Corpuscular Hgb 28.5 pg (27.0-31.0); Mean Corpuscular Volume 89.1 fL (80.0-94.0); Nucleated Red Blood Cells % 0 % (-); Platelet Count 224 10^3/uL (130-400); Red Blood Cell Count 3.76 10^6/uL (4.70-6.10); Red Cell Dist. Width 24.5 % (11.5-14.5); White Blood Cell Count 7.6 10^3/uL (4.8-10.8)
[2024-12-12 08:47] LABS: Blood Urea Nitrogen 30 mg/dl (9-20); Calcium 9.2 mg/dl (8.4-10.2); Carbon Dioxide 31 mmol/L (22-30); Chloride 99 mmol/L (98-107); Glucose 117 mg/dl (70-99); Potassium 4.6 mmol/L (3.5-5.1); Sodium 140 mmol/L (135-145); eGFR > 60.00
[2024-12-12 09:31] LABS: Anisocytosis 1+; Normal RBC Morphology No
[2024-12-12 09:32] LABS: Hypochromasia 1+; Ovalocytes 1+
[2024-12-12 09:33] LABS: Acanthocytes Occasional
== END ==
LOC: REG 07:06
PROVIDERS: ATTENDING PHYSICIAN Internal Medicine Cardiovascular Disease; FAMILY PHYSICIAN Family Medicine
DX: D68.318 Other hemorrhagic disorder due to intrinsic circulating anticoagulants, antibodies, or inhibitors (principal); I50.812 Chronic right heart failure; D50.0 Iron deficiency anemia secondary to blood loss (chronic); I10 Essential (primary) hypertension
CPT/HCPCS: 36415; 80048; 85025; 85610

== ENCOUNTER → 2025-01-06 13:52 | Outpatient (REF) | payer MEDICARE, SELFPAY | LOC: HWRCS 13:52 | PROVIDERS: ATTENDING PHYSICIAN Internal Medicine Cardiovascular Disease; FAMILY PHYSICIAN Family Medicine | DX: I10 Essential (primary) hypertension (principal); R53.83 Other fatigue; Z95.2 Presence of prosthetic heart valve; I07.1 Rheumatic tricuspid insufficiency; I50.20 Unspecified systolic (congestive) heart failure; R14.0 Abdominal distension (gaseous) | CPT/HCPCS: 93306 ==

== ENCOUNTER → 2025-01-13 07:31 | Day surgery (SDC) | payer MEDICARE, SELFPAY ==
[2025-01-13 08:16] LABS: Glucose - Point of Care 116 mg/dl (70-99)
[2025-01-13 08:17] VITALS: BMI 20.7
== END ==
LOC: CATH 07:31
PROVIDERS: ATTENDING PHYSICIAN Internal Medicine Cardiovascular Disease; FAMILY PHYSICIAN Family Medicine
DX: I08.3 Combined rheumatic disorders of mitral, aortic and tricuspid valves (principal); I27.20 Pulmonary hypertension, unspecified; I48.91 Unspecified atrial fibrillation; I11.0 Hypertensive heart disease with heart failure; I50.9 Heart failure, unspecified; E78.00 Pure hypercholesterolemia, unspecified; E11.9 Type 2 diabetes mellitus without complications; Z85.828 Personal history of other malignant neoplasm of skin; Z95.0 Presence of cardiac pacemaker; Z79.84 Long term (current) use of oral hypoglycemic drugs; Z79.01 Long term (current) use of anticoagulants
CPT/HCPCS: 93312; 93320; 93325; 36415; 82962

== ENCOUNTER → 2025-02-13 07:05 | Outpatient (REF) | payer MEDICARE, SELFPAY ==
[2025-02-13 08:02] LABS: INR 1.51; PT 18.5 Sec (11.4-14.6)
[2025-02-13 08:12] LABS: % Basophils 0.8 % (0-2); % Eosinophils 4.8 % (0-6); % Immature Granulocytes 0.3 % (0-0.5); % Lymphocytes 20.8 % (20.5-51.1); % Monocytes 7.3 % (1.7-9.3); Absolute Basophils 0.1 10^3/uL (0-0.2); Absolute Eosinophils 0.4 10^3/uL (0-0.7); Absolute Lymphocytes 1.6 10^3/uL (1.2-3.4); Absolute Monocytes 0.6 10^3/uL (0.1-0.6); Hematocrit 41.5 % (39.0-52.0); Hemoglobin 13.7 g/dL (13.0-18.0); Mean Platelet Volume 12.1 fL (7.4-10.4); Nucleated Red Blood Cells % 0 % (-); Platelet Count 166 10^3/uL (130-400); Red Blood Cell Count 4.56 10^6/uL (4.70-6.10); Red Cell Dist. Width 15.8 % (11.5-14.5); White Blood Cell Count 7.5 10^3/uL (4.8-10.8)
[2025-02-13 08:57] LABS: Albumin 5.1 g/dl (3.5-5.0); Blood Urea Nitrogen 37 mg/dl (9-20); Calcium 9.7 mg/dl (8.4-10.2); Carbon Dioxide 27 mmol/L (22-30); Chloride 101 mmol/L (98-107); Glucose 134 mg/dl (70-99); Phosphorus 3.9 mg/dl (2.5-4.5); Potassium 4.6 mmol/L (3.5-5.1); Sodium 140 mmol/L (135-145); eGFR > 60.00
== END ==
LOC: REG 07:05
PROVIDERS: ATTENDING PHYSICIAN Internal Medicine Cardiovascular Disease; FAMILY PHYSICIAN Family Medicine
DX: D68.318 Other hemorrhagic disorder due to intrinsic circulating anticoagulants, antibodies, or inhibitors (principal); I48.21 Permanent atrial fibrillation
CPT/HCPCS: 36415; 80069; 85025; 85610

== ENCOUNTER → 2025-02-17 09:18 | Outpatient (REF) | payer MEDICARE, SELFPAY | LOC: CLAB 09:18 | PROVIDERS: ATTENDING PHYSICIAN Specialist | DX: N39.0 Urinary tract infection, site not specified (principal) | CPT/HCPCS: 87077; 87086; 87186 ==

== ENCOUNTER → 2025-03-05 11:12 | Outpatient (REF) | payer MEDICARE, SELFPAY ==
[2025-03-05 11:49] LABS: PT 23.1 Sec (11.4-14.6)
== END ==
LOC: REG 11:12
PROVIDERS: ATTENDING PHYSICIAN Family Medicine
DX: D68.318 Other hemorrhagic disorder due to intrinsic circulating anticoagulants, antibodies, or inhibitors (principal)
CPT/HCPCS: 36415; 85610

== ENCOUNTER → 2025-03-27 11:16 | Outpatient (REF) | payer MEDICARE, SELFPAY ==
[2025-03-27 12:23] LABS: INR 1.78; PT 20.9 Sec (11.4-14.6)
[2025-03-27 12:24] LABS: APTT 37.5 Sec (23.4-35.0)
== END ==
LOC: REG 11:16
PROVIDERS: ATTENDING PHYSICIAN Family Medicine
DX: I48.21 Permanent atrial fibrillation (principal)
CPT/HCPCS: 36415; 85610; 85730

== ENCOUNTER → 2025-04-10 07:09 | Outpatient (REF) | payer MEDICARE, SELFPAY ==
[2025-04-10 07:57] LABS: % Basophils 0.7 % (0-2); % Immature Granulocytes 0.4 % (0-0.5); % Lymphocytes 16.3 % (20.5-51.1); % Monocytes 6.9 % (1.7-9.3); % Neutrophils 70.7 % (42.2-75.2); Absolute Basophils 0.1 10^3/uL (0-0.2); Absolute Eosinophils 0.4 10^3/uL (0-0.7); Absolute Lymphocytes 1.3 10^3/uL (1.2-3.4); Absolute Monocytes 0.5 10^3/uL (0.1-0.6); Absolute Neutrophils 5.4 10^3/uL (1.4-6.5); Hematocrit 39.6 % (39.0-52.0); Hemoglobin 13.3 g/dL (13.0-18.0); Mean Corp Hgb Conc. 33.6 g/dL (33.0-37.0); Mean Corpuscular Hgb 30.6 pg (27.0-31.0); Mean Platelet Volume 11.1 fL (7.4-10.4); Nucleated Red Blood Cells % 0 % (-); Platelet Count 192 10^3/uL (130-400); Red Blood Cell Count 4.35 10^6/uL (4.70-6.10); Red Cell Dist. Width 14.4 % (11.5-14.5); White Blood Cell Count 7.7 10^3/uL (4.8-10.8)
[2025-04-10 08:05] LABS: APTT 36.3 Sec (23.4-35.0); INR 1.65; PT 19.8 Sec (11.4-14.6)
[2025-04-10 08:23] LABS: ALT (SGPT) 27 U/L (0-50); AST (SGOT) 30 U/L (17-59); Albumin 4.6 g/dl (3.5-5.0); Alkaline Phosphatase 109 U/L (38-126); Blood Urea Nitrogen 28 mg/dl (9-20); Calcium 9.6 mg/dl (8.4-10.2); Carbon Dioxide 34 mmol/L (22-30); Chloride 104 mmol/L (98-107); Glucose 141 mg/dl (70-99); HDL Cholesterol 69 mg/dl; LDL Cholesterol, Calculated 74 mg/dl; Potassium 4.4 mmol/L (3.5-5.1); Sodium 144 mmol/L (135-145); Total Bilirubin 0.9 mg/dl (0.2-1.3); Total Cholesterol 158 mg/dl (50-199); Total Protein 8.1 g/dl (6.3-8.2); Triglyceride 77 mg/dl (10-149); Very Low Density Lipoprotein 15 mg/dl (0-30); eGFR > 60.00
[2025-04-10 08:47] LABS: Glycohemoglobin (HgbA1c) 7.1 % (4.0-5.6)
[2025-04-12 12:25] LABS: Quantiferon NIL 0.04 IU/mL; Quantiferon Plus TB1 minus NIL 0.01 IU/mL (<=0.34); Quantiferon Plus TB2 minus NIL 0.01 IU/mL (<=0.34); Quantiferon TB Gold Plus Negative (Negative)
== END ==
LOC: REG 07:09
PROVIDERS: ATTENDING PHYSICIAN Dermatology; FAMILY PHYSICIAN Family Medicine
DX: L40.0 Psoriasis vulgaris (principal); L57.8 Other skin changes due to chronic exposure to nonionizing radiation; L81.4 Other melanin hyperpigmentation; X32.XXXA Exposure to sunlight, initial encounter; Z85.828 Personal history of other malignant neoplasm of skin; Z87.2 Personal history of diseases of the skin and subcutaneous tissue; D22.5 Melanocytic nevi of trunk; L82.1 Other seborrheic keratosis; I87.2 Venous insufficiency (chronic) (peripheral); Z08 Encounter for follow-up examination after completed treatment for malignant neoplasm; Z09 Encounter for follow-up examination after completed treatment for conditions other than malignant neoplasm; Z71.89 Other specified counseling; I48.21 Permanent atrial fibrillation; I10 Essential (primary) hypertension; E11.59 Type 2 diabetes mellitus with other circulatory complications
CPT/HCPCS: 36415; 80053; 80061; 83036; 85025; 85610; 85730; 86480

== ENCOUNTER → 2025-05-28 11:26 | Outpatient (REF) | payer MEDICARE, SELFPAY ==
[2025-05-28 13:32] LABS: INR 2.81; PT 29.9 Sec (11.4-14.6)
[2025-05-28 13:33] LABS: APTT 45.0 Sec (23.4-35.0)
[2025-05-28 20:01] LABS: AFP Male/Tumor Marker 4.21 ng/ml
== END ==
LOC: REG 11:26
PROVIDERS: ATTENDING PHYSICIAN Nurse Practitioner; FAMILY PHYSICIAN Family Medicine
DX: K74.60 Unspecified cirrhosis of liver (principal); I48.21 Permanent atrial fibrillation
CPT/HCPCS: 36415; 82105; 85610; 85730

== ENCOUNTER → 2025-06-12 08:01 | Outpatient (REF) | payer MEDICARE, SELFPAY | LOC: RAD 08:01 | PROVIDERS: ATTENDING PHYSICIAN Nurse Practitioner; FAMILY PHYSICIAN Family Medicine; OTHER PHYSICIAN Surgery Vascular Surgery; REFERRING PHYSICIAN Internal Medicine Cardiovascular Disease | DX: I10 Essential (primary) hypertension (principal); Z95.2 Presence of prosthetic heart valve; I50.20 Unspecified systolic (congestive) heart failure; I77.9 Disorder of arteries and arterioles, unspecified; K74.60 Unspecified cirrhosis of liver; I25.10 Atherosclerotic heart disease of native coronary artery without angina pectoris | CPT/HCPCS: 76700; 93880 ==

== ENCOUNTER → 2025-09-04 10:16 | Outpatient (REF) | payer MEDICARE, SELFPAY ==
[2025-09-04 11:19] LABS: APTT 38.1 Sec (23.4-35.0); INR 2.30; PT 25.3 Sec (11.4-14.6)
== END ==
LOC: REG 10:16
PROVIDERS: ATTENDING PHYSICIAN Family Medicine
DX: I48.21 Permanent atrial fibrillation (principal)
CPT/HCPCS: 36415; 85610; 85730

== ENCOUNTER → 2025-10-26 14:44 | Outpatient (REF) | payer MEDICARE, SELFPAY ==
[2025-10-26 15:43] LABS: INR 2.67; PT 28.7 Sec (11.4-14.6)
[2025-10-26 15:44] LABS: APTT 42.0 Sec (23.4-35.0)
== END ==
LOC: REG 14:44
DX: E11.59 Type 2 diabetes mellitus with other circulatory complications (principal); I48.21 Permanent atrial fibrillation; D68.318 Other hemorrhagic disorder due to intrinsic circulating anticoagulants, antibodies, or inhibitors
CPT/HCPCS: 36415; 85610; 85730